=== PATIENT | male | born 1960 | race Caucasian/White ===

== ENCOUNTER 2021-04-20 12:05 | Inpatient (IN) | payer MEDICARE, MEDICAID, SELFPAY ==
[2021-04-20] VITALS (10 sets, daily range): BP systolic 92–143; BP diastolic 65–90; PULSE 92–108; RESP 13–23; TEMP 36.1; O2SAT 96–100; BMI 21.2
--- NOTE | ~2021-04-20 | XR_ITS ---
XR abdomen NG/feed tube insert DATE: 04/20/2021 12:47 INDICATION: NG tube placement TECHNIQUE: Portable AP view on 04/20/2021 1243 hours COMPARISON: None FINDINGS: There is an NG tube in gastric fundus, the proximal side-port 2 cm distal to the diaphragma tic hiatus. Normal heart size. No pulmonary infiltrate or consolidation or pleural effusion, pulmonary vascular c ongestion or pneumothorax is evident. IMPRESSION: NG tube in gastric fundus Reviewed, dictated and finalized at [facility]. Reviewed, dictated and finalized at location [facility]. IMPRESSION: NG tube in gastric fundus
--- NOTE | ~2021-04-20 | CT_ITS ---
EXAMINATION: CT abdomen pelvis wo con DATE: 04/20/2021 13:17 INDICATION: Abdominal pain, coffee-ground emesis. TECHNIQUE: Computed tomography (CT) of the abdomen and pelvis was performed without intravenous contr ast. Automated exposure control and iterative reconstruction technique were employed. Exam dose: 278 .34 mGy-cm total exam DLP. COMPARISON: 09/21/2019 CT abdomen pelvis FINDINGS: Slight focal infiltrate or atelectasis at the base of the right lower lobe. The lung bases are otherwise clear. Normal heart size. No pericardial or pleural effusion. There is an NG tube in the thymic. The gallbladder is present. The liver, bile ducts, spleen, pancreas, pancreatic duct and adrenal glan ds are unremarkable. 6 mm hyperdense posterior right renal cyst. The kidneys are otherwise unremarkable. No urinary tract calculus or hydroureteronephrosis. The urinary bladder is unremarkable. There are numerous fluid containing borderline and mildly dilated small bowel segments involving the ileum. There are scattered small bowel air-fluid levels. Differential diagnosis includes adynamic ile us, enteritis, distal small bowel obstruction. Normal appendix. There is a prominent amount of fecal material in the colon. No intraperitoneal free air. Small fat-containing umbilical hernia. No inguinal hernia. Multilevel degenerative disc disease, most severe at L4-5. Occasional scattered osteosclerotic foci may be bone islands; osteosclerotic metastatic deposits are considered less likely but aren't definitively excluded. IMPRESSION: Mildly dilated fluid distended ileum several differential diagnosis includes enteritis, adynamic ileus versus distal small bowel obstruction NG tube in proximal stomach Reviewed, dictated and finalized at [facility]. Reviewed, dictated and finalized at location [facility]. IMPRESSION: Mildly dilated fluid distended ileum several differential diagnosi s includes enteritis, adynamic ileus versus distal small bowel obstruction NG tube in proximal stomach
--- NOTE | ~2021-04-20 | US_ITS ---
US renal BI 04/21/2021 11:57 Procedure: Realtime transabdominal ultrasound of the kidneys and bladder. Indication: Acute renal insufficiency Comparison: CT dated 04/20/2021 Findings: Renal echotexture is normal bilaterally without hydronephrosis, contour deforming mass or r enal calculus. The hyperdense cyst seen in the right kidney on CT examination not identified on ultra sound, likely due to patient motion. The right kidney measures 11 cm and left kidney measures 10.1 cm . There is a Hart catheter in the bladder. Impression: 1: Unremarkable renal ultrasound. Reviewed, dictated and finalized at location [facility]. Impression: 1: Unremarkable renal ultrasound.
[2021-04-20] MEDS: ONDANSETRON INJ 4 MG/2 ML VIAL (12:19)
[2021-04-20 13:03] LABS: Basophils Absolute Auto 0.1 K/mm3 (0.0-0.1); Basophils Percent Auto 0.2 % (0.2-1.2); Eosinophils Absolute Auto 10.8 K/mm3 (0-0.3); Eosinophils Percent Auto 33.3 % (0-4.4); Hematocrit 46.9 % (42.0-52.0); Hemoglobin 16.2 g/dL (14.0-18.0); Immature Granulocyte Absolute 0.15 K/mm3 (0.00-0.031); Immature Granulocyte Percent A 0.5 % (0-0.5); Lymphocytes Absolute Auto 0.79 K/mm3 (0.9-3.2); Lymphocytes Percent Auto 2.4 % (18.3-44.2); Mean Corpuscular HGB Conc 34.5 g/dl (32-36); Mean Corpuscular Hemoglobin 30.1 pg (26-34); Mean Corpuscular Volume 87.2 fl (80-100); Mean Platelet Volume 9.4 fl (7.4-10.4); Monocytes Absolute Auto 2.9 K/mm3 (0.1-0.6); Monocytes Percent Auto 8.8 % (2.6-8.5); Neutrophils Absolute Auto 17.8 K/mm3 (1.3-6.7); Neutrophils Percent Auto 54.8 % (45.5-73.1); Platelet Count Result 390 k/mm3 (150-375); Red Blood Count 5.38 M/mm3 (4.6-6.20); Red Cell Distribution Width 13.8 % (11.5-14.5); White Blood Count 32.5 K/mm3 (4.5-10.0)
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
[2021-04-20] MEDS: PANTOPRAZOLE SODIUM IV 40 MG VIAL IV PUSH (13:05)
[2021-04-20] MEDS: HYDROmorphone HCL INJ (*CRX) 1 MG/ML SYR 0.5 MG IV PUSH ×2 (13:05→23:46)
[2021-04-20] MEDS: SODIUM CHLORIDE 0.9% IV 1,000 ML 999 ML IV CONT (13:05)
[2021-04-20] MEDS: DICYCLOMINE HCL INJ 20 MG/2 ML VIAL IM (13:05)
[2021-04-20] MEDS: ONDANSETRON INJ 4 MG/2 ML VIAL IV PUSH (13:05)
--- NOTE | 2021-04-20 13:06 | PC.NURSE ---
Pt to CT scan via stretcher at this time.
[2021-04-20 13:11] LABS: Estimated CRCL calculation 13 ml/min; Estimated Glomerular Filt Rate 10
[2021-04-20 13:12] LABS: Prothrombin Time 13.3 Seconds (11.1-14.7)
[2021-04-20 13:13] LABS: Alanine Aminotransferase 37 U/L (4-50); Albumin Level 4.9 g/dL (3.5-5.1); Alkaline Phosphatase 57 U/L (38-126); Anion Gap 20 mmol/L (8-16); Aspartate Amino Transferase 109 U/L (17-59); Bilirubin,Total 0.9 mg/dL (0.2-1.3); Blood Urea Nitrogen 93 mg/dL (9-20); Calcium 9.5 mg/dL (8.4-10.2); Carbon Dioxide 24 mmol/L (22-30); Chloride 92 mmol/L (98-107); Estimated CRCL calculation 14 ml/min; Estimated Glomerular Filt Rate 11; Glucose 132 mg/dL (65-110); Lipase 28 U/L (23-300); Partial Thromboplastin Time 31.3 SECONDS (22.3-36.8); Potassium 4.8 mmol/L (3.4-5.0); Sodium 136 mmol/L (137-145)
[2021-04-20 14:02] LABS: Add Urine Microscopic? YES; Appearance Urine Cloudy (Clear); Bacteria Urine Trace /hpf; Bilirubin Urine Negative (Negative); Blood Urine 3+ (Negative); Color Urine Amber (Yellow); Glucose Urine UA Negative (Negative); Hyaline Casts Urine 50+ /lpf; Ketones Urine Negative (Negative); Leukocyte Esterase Ur Negative LEU/UL (Negative); Mucus Urine Few /lpf; Nitrate Urine Negative (Negative); Protein Urine 2+ mg/dL (Negative); Specific Grav Ur 1.017 (1.001-1.035); Squamous Epithelial Cell Urine Occasional /hpf (Few); Urobilinogen Urine Negative mg/dL (<2.0)
--- NOTE | 2021-04-20 14:09 | PC.NURSE ---
jerica called lab, pari, added on CK
[2021-04-20 14:36] LABS: Creatine Kinase 2705 U/L (55-170)
[2021-04-20 15:18] LABS: Barbiturate Screen Urine Negative (Negative); Benzodiazepines Screen Urine Negative (Negative)
[2021-04-20 15:20] LABS: Cannabinoid Screen Urine Positive (Negative); Cocaine Screen Urine Negative (Negative); Methadone Screen Urine Negative (Negative); Opiate Screen Urine Positive (Negative); Phencyclidine Screen Urine Negative (Negative)
[2021-04-20 15:36] LABS: Amphetamine Screen Urine Positive (Negative)
[2021-04-20] MEDS: SODIUM CHLORIDE 0.9% IV 1,000 ML 200 ML IV CONT ×2 (16:05→20:56)
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
--- NOTE | 2021-04-20 19:47 | ADMGEN ---
This patient, Olvin Billy, was admitted to [facility] Surg Room 312-01. Patient/family oriented to hospital policies and general routines including ID bracelet, bed and alarms, visiting hours, pain management, procedures, bathroom and other care routines, personal items, smoking policy, room service/diet, and visiting hours. Information on how to activate the Rapid Response Team has been discussed. Patient/Family are encouraged to report perceived risks to care and to ask questions if they do not understand what they are told or what they should do.
[2021-04-20 23:21] LABS: Anion Gap 13 mmol/L (8-16); Blood Urea Nitrogen 84 mg/dL (9-20); Calcium 8.7 mg/dL (8.4-10.2); Carbon Dioxide 21 mmol/L (22-30); Chloride 103 mmol/L (98-107); Estimated CRCL calculation 23 ml/min; Estimated Glomerular Filt Rate 22; Glucose 108 mg/dL (65-110); Lactic Acid Reflex 1.1 mmol/L (0.7-2.1); Magnesium 2.1 mg/dL (1.6-2.3); Potassium 4.4 mmol/L (3.4-5.0); Sodium 137 mmol/L (137-145)
[2021-04-20 23:26] LABS: Phosphorus 6.8 mg/dL (2.5-4.5)
[2021-04-20 23:32] LABS: Hematocrit 43.4 % (42.0-52.0); Hemoglobin 15.2 g/dL (14.0-18.0)
[2021-04-20 23:42] LABS: Ethanol < 10 mg/dL (<10)
[2021-04-20] MEDS: LORazepam INJ (*CRX) 2 MG/ML VIAL 1 MG IV PUSH (23:44)
[2021-04-20 23:49] LABS: Creatine Kinase 2205 U/L (55-170)
[2021-04-21] VITALS (8 sets, daily range): BP systolic 107–157; BP diastolic 62–94; PULSE 78–112; RESP 18–27; TEMP 35.8–36.6; O2SAT 95–100
[2021-04-21 00:03] LABS: Troponin I < 0.012 ng/mL (0.000-0.034)
[2021-04-21] MEDS: NICOTINE (*PBKC) 21 MG PATCH 1 PATCH TRANSDERM ×2 (00:13→14:14)
[2021-04-21] MEDS: PANTOPRAZOLE SODIUM IV 40 MG VIAL IV PUSH ×3 (00:15→21:46)
[2021-04-21 00:20] LABS: Erythrocyte Sedimentation Rate 20 mm/hr (0-20)
[2021-04-21 00:28] LABS: HIV 1/2 Ab P24 Ag Result Negative (Negative)
[2021-04-21 00:42] LABS: CRP 31.7 mg/dL (<1.0)
[2021-04-21] MEDS: SODIUM CHLORIDE 0.9% IV 1,000 ML 200 ML IV CONT ×2 (03:53→10:01)
[2021-04-21] MEDS: HYDROmorphone HCL INJ (*CRX) 1 MG/ML SYR 0.5 MG IV PUSH ×3 (04:02→21:55)
[2021-04-21] MEDS: LORazepam INJ (*CRX) 2 MG/ML VIAL 1 MG IV PUSH ×3 (04:03→17:04)
[2021-04-21 04:16] LABS: Total Protein Urine Random 21 mg/dL; Ur Ttl Prot Creatinine Ratio 0.25 mg/mg (0-0.20)
[2021-04-21 04:19] LABS: Potassium Urine Random 46.7 meq/L; Sodium Urine Random 82 meq/L
[2021-04-21 06:39] LABS: Basophils Absolute Auto 0.1 K/mm3 (0.0-0.1); Basophils Percent Auto 0.7 % (0.2-1.2); Eosinophils Absolute Auto 3.3 K/mm3 (0-0.3); Hematocrit 50.6 % (42.0-52.0); Hemoglobin 16.6 g/dL (14.0-18.0); Immature Granulocyte Absolute 0.11 K/mm3 (0.00-0.031); Immature Granulocyte Percent A 0.6 % (0-0.5); Lymphocytes Absolute Auto 0.56 K/mm3 (0.9-3.2); Lymphocytes Percent Auto 2.9 % (18.3-44.2); Mean Corpuscular HGB Conc 32.8 g/dl (32-36); Mean Corpuscular Hemoglobin 30.1 pg (26-34); Mean Corpuscular Volume 91.8 fl (80-100); Mean Platelet Volume 9.7 fl (7.4-10.4); Monocytes Absolute Auto 1.5 K/mm3 (0.1-0.6); Monocytes Percent Auto 7.7 % (2.6-8.5); Neutrophils Absolute Auto 13.9 K/mm3 (1.3-6.7); Neutrophils Percent Auto 71.1 % (45.5-73.1); Platelet Count Result 267 k/mm3 (150-375); Red Blood Count 5.51 M/mm3 (4.6-6.20); Red Cell Distribution Width 14.3 % (11.5-14.5); White Blood Count 19.6 K/mm3 (4.5-10.0)
[2021-04-21 06:54] LABS: Alanine Aminotransferase 40 U/L (4-50); Alkaline Phosphatase 40 U/L (38-126); Anion Gap 14 mmol/L (8-16); Aspartate Amino Transferase 107 U/L (17-59); Bilirubin,Total 0.9 mg/dL (0.2-1.3); Blood Urea Nitrogen 74 mg/dL (9-20); Calcium 9.2 mg/dL (8.4-10.2); Carbon Dioxide 19 mmol/L (22-30); Chloride 105 mmol/L (98-107); Creatine Kinase 1425 U/L (55-170); Estimated CRCL calculation 38 ml/min; Estimated Glomerular Filt Rate 41; Glucose 98 mg/dL (65-110); Magnesium 2.2 mg/dL (1.6-2.3); Potassium 4.9 mmol/L (3.4-5.0); Sodium 138 mmol/L (137-145)
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
[2021-04-21 11:06] LABS: Complement C3 92 mg/dL (88-165)
--- NOTE | 2021-04-21 11:24 | PC.NURSE ---
to US per stretcher
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
[2021-04-21] MEDS: LACTATED RINGERS 1,000 ML 150 ML IV CONT (12:22)
--- NOTE | 2021-04-21 12:33 | WPDANESEPPF ---
Anes - Initial Pre Proc Eval Procedure: Operation Date: 04/21/21 15:30 Proposed Procedures p Esophagogastroduodenoscopy - Sanchez Burden MD Date/Time: 04/21/21 12:33 Surgeon: Jaylyn Valencia PA-C Pre Op Diagnosis: Bowel obstruction/vomiting/acute kidney failure/to Patient Data Age: 60 Gender: M Height: 1.73 m Weight: 63.2 kg Last Vital Signs Temp 36.1 C L 04/21/21 12:20 Pulse 101 H 04/21/21 12:20 Resp 20 04/21/21 12:20 BP 109/68 04/21/21 12:20 Pulse Ox 98 04/21/21 12:20 Allergies Allergy/AdvReac Type Severity Reaction Status Date / Time codeine Allergy Mild Hives Verified 04/21/21 12:09 propoxyphene Allergy Mild Hives Verified 04/21/21 12:09 tramadol Allergy Mild Hives Verified 04/21/21 12:09 Home Medications Medication Instructions Recorded Confirmed Type aspirin [Adult Low Dose Aspirin] 81 mg PO DAILY 09/21/19 04/21/21 History cyclobenzaprine 10 mg PO TID PRN 09/21/19 04/21/21 History lisinopril 5 mg PO DAILY 09/21/19 04/21/21 History tamsulosin 0.4 mg PO DAILY 09/21/19 04/21/21 History polyethylene glycol 3350 [Miralax] 17 g PO QAM #30 ea 09/26/19 04/21/21 Rx oxycodone-acetaminophen 10 mg-325 1 tablet PO Q6H PRN #20 tablet 10/19/19 04/21/21 Rx mg tablet hydrochlorothiazide 25 mg PO DAILY 04/20/21 04/21/21 History hydroxyzine HCl 50 mg PO Q4-5H PRN 04/20/21 04/21/21 History pantoprazole 40 mg PO DAILY 04/20/21 04/21/21 History quetiapine 100 mg PO BID 04/20/21 04/21/21 History Laboratory Tests 04/20/21 04/20/21 04/20/21 12:47 12:53 12:53 WBC 32.5 K/mm3 H K/mm3 (4.5-10.0) RBC 5.38 M/mm3 M/mm3 (4.6-6.20) Hgb 16.2 g/dL g/dL (14.0-18.0) Hct 46.9 % % (42.0-52.0) MCV 87.2 fl fl (80-100) MCH 30.1 pg pg (26-34) MCHC 34.5 g/dl g/dl (32-36) RDW 13.8 % % (11.5-14.5) Plt Count 390 k/mm3 H D k/mm3 (150-375) MPV 9.4 fl fl (7.4-10.4) Immature Gran % (Auto) 0.5 % % (0-0.5) Neut % (Auto) 54.8 % % (45.5-73.1) Lymph % (Auto) 2.4 % L % (18.3-44.2) [place] % (Auto) 8.8 % H % (2.6-8.5) Eos % (Auto) 33.3 % H % (0-4.4) Baso % (Auto) 0.2 % % (0.2-1.2) Lymph # (Auto) 0.79 K/mm3 L K/mm3 (0.9-3.2) [place] # (Auto) 2.9 K/mm3 H K/mm3 (0.1-0.6) Eos # (Auto) 10.8 K/mm3 H K/mm3 (0-0.3) Baso # (Auto) 0.1 K/mm3 K/mm3 (0.0-0.1) Abs Immat Gran (auto) 0.15 K/mm3 H K/mm3 (0.00-0.031) Absolute Neuts (auto) 17.8 K/mm3 H K/mm3 (1.3-6.7) Absolute Nucleated RBC 0.0 K/mm3 K/mm3 (0.0-0.012) Nucleated RBC % 0.0 % % (0.0-0.2) ESR PT 13.3 Seconds Seconds (11.1-14.7) INR 1.0 APTT 31.3 SECONDS SECONDS (22.3-36.8) Sodium Potassium Chloride Carbon Dioxide Anion Gap BUN Creatinine Estim Creat Clear Calc Estimated GFR Glucose Lactic Acid Calcium Phosphorus Magnesium Total Bilirubin Direct Bilirubin AST ALT Alkaline Phosphatase Total Creatine Kinase 2705 U/L H U/L (55-170) Troponin I C-Reactive Protein Total Protein Albumin Lipase Vitamin B12 Urine Color Urine Appearance Urine pH Ur Specific [place] Urine Protein Urine Glucose (UA) Urine Ketones Ur Blood (Man) Urine Nitrate Urine Bilirubin Urine Urobilinogen Leukocyte Esterase Rfl Urine RBC Urine WBC Ur Squamous Epith Cells Urine Bacteria
[2021-04-21 12:51] LABS: Eosinophil Urine None Seen % (None Seen)
--- NOTE | 2021-04-21 14:07 | PC.NURSE ---
patient returned to room from gi lab
[2021-04-21] MEDS: SUCRALFATE SUSP 100 MG/ML 10 ML UDC 1000 MG PO ×2 (16:58→21:46)
--- NOTE | 2021-04-21 17:18 | P.PNIM_ITS ---
Progress Note: A&P Assessment and Plan (1) Ileus: Code(s): K56.7 - Ileus, unspecified Status: Acute Assessment and Plan: CT suggestive of ileus versus possible distal small-bowel obstruction or even enteritis. He has quite a bit of stool in the colon and is a longtime opioid user, making ileus the likely diagnosis. he did have a bowel movement today. * appreciate general surgery and gastroenterology consultation * NG tube has been discontinued * clear liquid diet. Advance as tolerated per Gastroenterology recommendations (2) Coffee ground emesis: Code(s): K92.0 - Hematemesis Status: Acute Assessment and Plan: Patient has a history of GERD and perforated peptic ulcer in August 2019. * underwent EGD performed by Dr. Salvador with evidence of reflux esophagitis * continue Protonix b.i.d. and carafate * H&H remaining stable * advanced diet per GI recommendations. (3) Leukocytosis: Code(s): D72.829 - Elevated white blood cell count, unspecified Status: Acute Assessment and Plan: White blood cell count markedly elevated up to 32.5 at presentation * he has been started on empiric Zosyn for possible infectious enteritis * lactic acid level is 1.1, therefore ischemic etiology seems less likely * remains afebrile. * leukocytosis improved to 19.6 today * Monitor CBC with differential (4) Eosinophilia: Code(s): D72.10 - Eosinophilia, unspecified Status: Acute Assessment and Plan: Peripheral smear performed given marked eosinophilia which demonstrates normal eosinophils. Pathology notes that for unclear reasons, neutrophils in specimen appear to have been counted by the analyzer as eosinophils. On manual review there is no evidence of eosinophilia. (5) Acute kidney injury: Code(s): N17.9 - Acute kidney failure, unspecified Status: Acute Assessment and Plan: Etiology not entirely clear but likely multifactorial in etiology. * He has a history of BPH with urinary retention thus Hart catheter was initiated for strict I/ O. * He has been taking ibuprofen which could cause interstitial nephritis. * CK is elevated thus rhabdomyolysis is likely playing a part. * He is on an YADY-inhibitor which is being held * Dehydration also a factor as well given vomiting. * Renal US unremarkable * He has been gently rehydrated and Cr has improved to 1.7 * Appreciate nephrology consultation (6) Rhabdomyolysis: Code(s): M62.82 - Rhabdomyolysis Status: Acute Assessment and Plan: CK has improved with fluids * CK 1425 today * Continue IV fluids and recheck CK in AM (7) Polysubstance abuse: Code(s): F19.10 - Other psychoactive substance abuse, uncomplicated Status: Acute Assessment and Plan: Urine drug screen is positive for opiates, methamphetamines, and cannabinoids. * He appeared to be under the influence of methamphetamines at initial exam and at this time appears to be withdrawing with restlessness and fidgeting. * He has a history of alcohol abuse but maintains that he has been sober for a year and a half for more. He will be monitored closely for withdrawal symptoms. * He will benefit from formal rehab program. care coordination following resources will be provided. * Ativan p.r.n. acute anxiety or withdrawal symptoms (8) Hypertension: Code(s): I10 - Essential (primary) hypertension Status: Acute Assessment and Plan: Blood pressures w
--- NOTE | 2021-04-21 17:18 | PM.IMPN ---
Progress Note: A&P Assessment and Plan (1) Ileus: Code(s): K56.7 - Ileus, unspecified Status: Acute Assessment and Plan: CT suggestive of ileus versus possible distal small-bowel obstruction or even enteritis. He has quite a bit of stool in the colon and is a longtime opioid user, making ileus the likely diagnosis. he did have a bowel movement today. appreciate general surgery and gastroenterology consultation NG tube has been discontinued clear liquid diet. Advance as tolerated per Gastroenterology recommendations (2) Coffee ground emesis: Code(s): K92.0 - Hematemesis Status: Acute Assessment and Plan: Patient has a history of GERD and perforated peptic ulcer in August 2019. underwent EGD performed by Dr. Salvador with evidence of reflux esophagitis continue Protonix b.i.d. and carafate H&H remaining stable advanced diet per GI recommendations. (3) Leukocytosis: Code(s): D72.829 - Elevated white blood cell count, unspecified Status: Acute Assessment and Plan: White blood cell count markedly elevated up to 32.5 at presentation he has been started on empiric Zosyn for possible infectious enteritis lactic acid level is 1.1, therefore ischemic etiology seems less likely remains afebrile. leukocytosis improved to 19.6 today Monitor CBC with differential (4) Eosinophilia: Code(s): D72.10 - Eosinophilia, unspecified Status: Acute Assessment and Plan: Peripheral smear performed given marked eosinophilia which demonstrates normal eosinophils. Pathology notes that for unclear reasons, neutrophils in specimen appear to have been counted by the analyzer as eosinophils. On manual review there is no evidence of eosinophilia. (5) Acute kidney injury: Code(s): N17.9 - Acute kidney failure, unspecified Status: Acute Assessment and Plan: Etiology not entirely clear but likely multifactorial in etiology. He has a history of BPH with urinary retention thus Hart catheter was initiated for strict I/ O. He has been taking ibuprofen which could cause interstitial nephritis. CK is elevated thus rhabdomyolysis is likely playing a part. He is on an YADY-inhibitor which is being held Dehydration also a factor as well given vomiting. Renal US unremarkable He has been gently rehydrated and Cr has improved to 1.7 Appreciate nephrology consultation (6) Rhabdomyolysis: Code(s): M62.82 - Rhabdomyolysis Status: Acute Assessment and Plan: CK has improved with fluids CK 1425 today Continue IV fluids and recheck CK in AM (7) Polysubstance abuse: Code(s): F19.10 - Other psychoactive substance abuse, uncomplicated Status: Acute Assessment and Plan: Urine drug screen is positive for opiates, methamphetamines, and cannabinoids. He appeared to be under the influence of methamphetamines at initial exam and at this time appears to be withdrawing with restlessness and fidgeting. He has a history of alcohol abuse but maintains that he has been sober for a year and a half for more. He will be monitored closely for withdrawal symptoms. He will benefit from formal rehab program. care coordination following resources will be provided. Ativan p.r.n. acute anxiety or withdrawal symptoms (8) Hypertension: Code(s): I10 - Essential (primary) hypertension Status: Acute Assessment and Plan: Blood pressures were reviewed and they are well controlled. last BP 110/94 lisinopril on hold given BEVERLEY monitor BP trends (9) Tobacco abuse disorder: Code(s): Z72.0 - Tobacco use Status: Acute Assessment and Plan: At this time not felt to be appropriate to discuss smoking cessation as he needs to focus on his other drug habits as mentioned above. Nicotine patch has been ordered for the patient. (10) Benign prostatic
[2021-04-21] MEDS: SODIUM CHLORIDE 0.9% IV 1,000 ML 100 ML IV CONT (23:21)
[2021-04-22] VITALS: BP 139/119; PULSE 98; RESP 22; TEMP 36.7; O2SAT 98
[2021-04-22] MEDS: LORazepam INJ (*CRX) 2 MG/ML VIAL 1 MG IV PUSH (02:00)
[2021-04-22] MEDS: HYDROmorphone HCL INJ (*CRX) 1 MG/ML SYR 0.5 MG IV PUSH ×6 (02:01→21:22)
[2021-04-22 04:00] VITALS: BP 90/42; PULSE 96; RESP 18; TEMP 36.3; O2SAT 100
[2021-04-22 06:38] LABS: Hematocrit 39.6 % (42.0-52.0); Hemoglobin 13.2 g/dL (14.0-18.0); Mean Corpuscular HGB Conc 33.3 g/dl (32-36); Mean Corpuscular Hemoglobin 29.9 pg (26-34); Mean Corpuscular Volume 89.6 fl (80-100); Mean Platelet Volume 9.3 fl (7.4-10.4); Platelet Count Result 204 k/mm3 (150-375); Red Blood Count 4.42 M/mm3 (4.6-6.20); Red Cell Distribution Width 13.9 % (11.5-14.5); White Blood Count 13.4 K/mm3 (4.5-10.0)
[2021-04-22 08:00] VITALS: BP 106/66; PULSE 99; RESP 18; TEMP 36.2; O2SAT 99
[2021-04-22 08:23] LABS: Alanine Aminotransferase 36 U/L (4-50); Albumin Level 3.2 g/dL (3.5-5.1); Alkaline Phosphatase 39 U/L (38-126); Anion Gap 8 mmol/L (8-16); Aspartate Amino Transferase 59 U/L (17-59); Bilirubin,Total 0.7 mg/dL (0.2-1.3); Blood Urea Nitrogen 28 mg/dL (9-20); Calcium 8.9 mg/dL (8.4-10.2); Carbon Dioxide 24 mmol/L (22-30); Chloride 101 mmol/L (98-107); Creatine Kinase 385 U/L (55-170); Estimated CRCL calculation 77 ml/min; Estimated Glomerular Filt Rate > 60; Glucose 86 mg/dL (65-110); Potassium 3.5 mmol/L (3.4-5.0); Sodium 133 mmol/L (137-145)
--- NOTE | 2021-04-22 08:33 | PC.NURSE ---
Patient rolled back and forth in bed through the night. He c/o 10/10 pain when asked. He yelled and made growling noises through the night. He was cooperative with cares but required frequent redirection. He had to be reminded repeatedly not to pull on his Hart catheter which appeared to irritate him more as he continued to pull at it.
[2021-04-22] MEDS: NICOTINE (*PBKC) 21 MG PATCH 1 PATCH TRANSDERM (10:03)
[2021-04-22] MEDS: PANTOPRAZOLE SODIUM IV 40 MG VIAL IV PUSH ×2 (10:03→21:22)
[2021-04-22 12:00] VITALS: BP 111/64; PULSE 95; RESP 18; TEMP 36.4; O2SAT 100
[2021-04-22] MEDS: SUCRALFATE SUSP 100 MG/ML 10 ML UDC 1000 MG PO ×3 (12:29→21:23)
[2021-04-22] MEDS: SODIUM CHLORIDE 0.9% IV 1,000 ML 100 ML IV CONT ×2 (12:30→23:25)
--- NOTE | 2021-04-22 15:45 | P.PNIM_ITS ---
Progress Note: A&P Assessment and Plan (1) Ileus: Code(s): K56.7 - Ileus, unspecified Status: Acute Assessment and Plan: CT suggestive of ileus versus possible distal small-bowel obstruction or even enteritis. He has quite a bit of stool in the colon and is a longtime opioid user, making ileus the likely diagnosis. * Appreciate general surgery and gastroenterology consultation * NG tube discontinued 04/21. Clear liquids today, no BM yet today. Appreciate GI recommendations on advancing diet when able. (2) Coffee ground emesis: Code(s): K92.0 - Hematemesis Status: Acute Assessment and Plan: Patient has a history of GERD and perforated peptic ulcer in August 2019. * underwent EGD performed by Dr. Salvador 04/21 with evidence of reflux esophag itis * continue Protonix b.i.d. and carafate * H&H remaining stable * advance diet per GI recommendations. (3) Leukocytosis: Code(s): D72.829 - Elevated white blood cell count, unspecified Status: Acute Assessment and Plan: White blood cell count markedly elevated up to 32.5 at presentation now much improved to 13.4 * he has been started on empiric Zosyn for possible infectious enteritis. Continue Zosyn (day 2) * lactic acid level was 1.1, therefore ischemic etiology seems less likely * remains afebrile. * Monitor CBC with differential (4) Eosinophilia: Code(s): D72.10 - Eosinophilia, unspecified Status: Ruled-out Assessment and Plan: Peripheral smear performed given marked eosinophilia which demonstrates normal eosinophils. Pathology noted that for unclear reasons, neutrophils in specimen appear to have been counted by the analyzer as eosinophils. On manual review there is no evidence of eosinophilia. (5) Acute kidney injury: Code(s): N17.9 - Acute kidney failure, unspecified Status: Acute Assessment and Plan: Etiology not entirely clear but likely multifactorial in etiology. * He has a history of BPH with urinary retention thus Hart catheter was initiated for strict I/ O. * He has been taking ibuprofen which could cause interstitial nephritis. * CK is elevated thus rhabdomyolysis is likely playing a part. * He is on an YADY-inhibitor which is being held * Dehydration also a factor as well given vomiting. * Renal US unremarkable * He has been gently rehydrated and Cr has improved to 0.8. Nephrology consult cancelled as his renal function is improving nicely with hydration. Consultation can be reconsidered if renal function worsens. (6) Rhabdomyolysis: Code(s): M62.82 - Rhabdomyolysis Status: Acute Assessment and Plan: CK has improved with fluids * CK 385 today * Continue IV fluids and recheck CK in AM (7) Polysubstance abuse: Code(s): F19.10 - Other psychoactive substance abuse, uncomplicated Status: Acute Assessment and Plan: Urine drug screen is positive for opiates, methamphetamines, and cannabinoids. * He appeared to be under the influence of methamphetamines at initial exam and at this time appeared to be withdrawing with restlessness and fidgeting although this seems improved today. * He has a history of alcohol abuse but maintains that he has been sober for a year and a half for more. He will be monitored closely for withdrawal symptoms. * He will benefit from formal rehab program. Care coordination following, resources will be provided. * Ativan p.r.n. acute anxiety or withdrawal symptoms
--- NOTE | 2021-04-22 15:45 | PM.IMPN ---
Progress Note: A&P Assessment and Plan (1) Ileus: Code(s): K56.7 - Ileus, unspecified Status: Acute Assessment and Plan: CT suggestive of ileus versus possible distal small-bowel obstruction or even enteritis. He has quite a bit of stool in the colon and is a longtime opioid user, making ileus the likely diagnosis. Appreciate general surgery and gastroenterology consultation NG tube discontinued 04/21. Clear liquids today, no BM yet today. Appreciate GI recommendations on advancing diet when able. (2) Coffee ground emesis: Code(s): K92.0 - Hematemesis Status: Acute Assessment and Plan: Patient has a history of GERD and perforated peptic ulcer in August 2019. underwent EGD performed by Dr. Salvador 04/21 with evidence of reflux esophagitis continue Protonix b.i.d. and carafate H&H remaining stable advance diet per GI recommendations. (3) Leukocytosis: Code(s): D72.829 - Elevated white blood cell count, unspecified Status: Acute Assessment and Plan: White blood cell count markedly elevated up to 32.5 at presentation now much improved to 13.4 he has been started on empiric Zosyn for possible infectious enteritis. Continue Zosyn (day 2) lactic acid level was 1.1, therefore ischemic etiology seems less likely remains afebrile. Monitor CBC with differential (4) Eosinophilia: Code(s): D72.10 - Eosinophilia, unspecified Status: Ruled-out Assessment and Plan: Peripheral smear performed given marked eosinophilia which demonstrates normal eosinophils. Pathology noted that for unclear reasons, neutrophils in specimen appear to have been counted by the analyzer as eosinophils. On manual review there is no evidence of eosinophilia. (5) Acute kidney injury: Code(s): N17.9 - Acute kidney failure, unspecified Status: Acute Assessment and Plan: Etiology not entirely clear but likely multifactorial in etiology. He has a history of BPH with urinary retention thus Hart catheter was initiated for strict I/ O. He has been taking ibuprofen which could cause interstitial nephritis. CK is elevated thus rhabdomyolysis is likely playing a part. He is on an YADY-inhibitor which is being held Dehydration also a factor as well given vomiting. Renal US unremarkable He has been gently rehydrated and Cr has improved to 0.8. Nephrology consult cancelled as his renal function is improving nicely with hydration. Consultation can be reconsidered if renal function worsens. (6) Rhabdomyolysis: Code(s): M62.82 - Rhabdomyolysis Status: Acute Assessment and Plan: CK has improved with fluids CK 385 today Continue IV fluids and recheck CK in AM (7) Polysubstance abuse: Code(s): F19.10 - Other psychoactive substance abuse, uncomplicated Status: Acute Assessment and Plan: Urine drug screen is positive for opiates, methamphetamines, and cannabinoids. He appeared to be under the influence of methamphetamines at initial exam and at this time appeared to be withdrawing with restlessness and fidgeting although this seems improved today. He has a history of alcohol abuse but maintains that he has been sober for a year and a half for more. He will be monitored closely for withdrawal symptoms. He will benefit from formal rehab program. Care coordination following, resources will be provided. Ativan p.r.n. acute anxiety or withdrawal symptoms (8) Hypertension: Code(s): I10 - Essential (primary) hypertension Status: Acute Assessment and Plan: Blood pressures were reviewed and they are well controlled. last BP 111/64 Lisinopril on hold given BEVERLEY. Monitor BP and adjust treatment as needed. (9) Tobacco abuse disorder: Code(s): Z72.0 - Tobacco use Status: Acute Assessment and Plan: At this time not felt to be appropriate to discuss smo
[2021-04-22 16:00] VITALS: BP 103/80; PULSE 97; RESP 20; TEMP 36.4; O2SAT 99
[2021-04-22 20:00] VITALS: BP 113/74; PULSE 98; RESP 18; TEMP 36; O2SAT 99
[2021-04-23] VITALS: BP 112/80; PULSE 76; RESP 18; TEMP 36; O2SAT 94
[2021-04-23] MEDS: HYDROmorphone HCL INJ (*CRX) 1 MG/ML SYR 0.5 MG IV PUSH ×3 (01:09→11:39)
[2021-04-23 04:00] VITALS: BP 101/74; PULSE 70; RESP 20; TEMP 35.8; O2SAT 99
[2021-04-23] MEDS: SUCRALFATE SUSP 100 MG/ML 10 ML UDC 1000 MG PO ×4 (05:53→21:01)
[2021-04-23 06:23] LABS: Hematocrit 37.7 % (42.0-52.0); Hemoglobin 12.8 g/dL (14.0-18.0); Mean Corpuscular Hemoglobin 30.1 pg (26-34); Mean Corpuscular Volume 88.7 fl (80-100); Mean Platelet Volume 9.3 fl (7.4-10.4); Platelet Count Result 229 k/mm3 (150-375); Red Blood Count 4.25 M/mm3 (4.6-6.20); Red Cell Distribution Width 13.7 % (11.5-14.5); White Blood Count 12.5 K/mm3 (4.5-10.0)
[2021-04-23 06:39] LABS: Alanine Aminotransferase 29 U/L (4-50); Albumin Level 2.7 g/dL (3.5-5.1); Alkaline Phosphatase 42 U/L (38-126); Anion Gap 7 mmol/L (8-16); Aspartate Amino Transferase 32 U/L (17-59); Bilirubin,Total 0.6 mg/dL (0.2-1.3); Blood Urea Nitrogen 14 mg/dL (9-20); Calcium 8.9 mg/dL (8.4-10.2); Carbon Dioxide 26 mmol/L (22-30); Chloride 101 mmol/L (98-107); Creatine Kinase 79 U/L (55-170); Estimated CRCL calculation 101 ml/min; Estimated Glomerular Filt Rate > 60; Glucose 102 mg/dL (65-110); Magnesium 1.7 mg/dL (1.6-2.3); Potassium 3.3 mmol/L (3.4-5.0); Sodium 134 mmol/L (137-145)
[2021-04-23] MEDS: NICOTINE (*PBKC) 21 MG PATCH 1 PATCH TRANSDERM (08:02)
[2021-04-23] MEDS: PANTOPRAZOLE SODIUM IV 40 MG VIAL IV PUSH ×2 (08:02→21:01)
[2021-04-23] MEDS: SODIUM CHLORIDE 0.9% IV 1,000 ML 100 ML IV CONT (11:05)
[2021-04-23] MEDS: LORazepam INJ (*CRX) 2 MG/ML VIAL 1 MG IV PUSH ×2 (13:14→21:02)
[2021-04-23 14:00] VITALS: BP 120/86; PULSE 95; RESP 16; TEMP 36.6; O2SAT 98
[2021-04-23] MEDS: POTASSIUM CHLORIDE 20 MEQ TABLET PO (16:39)
[2021-04-23] MEDS: MAGNESIUM SULF 2 GM/WATER 50ML 2 GM/50 ML BAG IVPB (16:39)
--- NOTE | 2021-04-23 17:03 | P.PNIM_ITS ---
Progress Note: A&P Assessment and Plan (1) Ileus: Code(s): K56.7 - Ileus, unspecified Status: Acute Assessment and Plan: CT suggestive of ileus versus possible distal small-bowel obstruction or even enteritis. CT also with prominent amount of stool in the colon and is a longtime opioid user, making ileus the likely diagnosis. * Appreciate general surgery and gastroenterology consultation * NG tube discontinued 04/21. he had a bowel movement on 04/21 * tolerating full liquids. advance to low-fiber. (2) Coffee ground emesis: Code(s): K92.0 - Hematemesis Status: Acute Assessment and Plan: Patient has a history of GERD and perforated peptic ulcer in August 2019. * underwent EGD performed by Dr. Salvador 04/21 with evidence of reflux esophagitis * continue Protonix b.i.d. and carafate * H&H remaining stable (3) Leukocytosis: Code(s): D72.829 - Elevated white blood cell count, unspecified Status: Acute Assessment and Plan: White blood cell count markedly elevated up to 32.5 at presentation now much improved to 12.5 * he has been started on empiric Zosyn for possible infectious enteritis. Continue Zosyn (day 3) * lactic acid level was 1.1, therefore ischemic etiology seems less likely * remains afebrile. * Monitor CBC with differential (4) Eosinophilia: Code(s): D72.10 - Eosinophilia, unspecified Status: Ruled-out Assessment and Plan: Peripheral smear performed given marked eosinophilia which demonstrates normal eosinophils. Pathology noted that for unclear reasons, neutrophils in specimen appear to have been counted by the analyzer as eosinophils. On manual review there is no evidence of eosinophilia. (5) Acute kidney injury: Code(s): N17.9 - Acute kidney failure, unspecified Status: Acute Assessment and Plan: Etiology not entirely clear but likely multifactorial in etiology. * He has a history of BPH with urinary retention thus Hart catheter was initiated for strict I/ O. * He has been taking ibuprofen which could cause interstitial nephritis. * CK is elevated thus rhabdomyolysis is likely playing a part. * He is on an YADY-inhibitor which is being held * Dehydration also a factor as well given vomiting. * Renal US unremarkable * He has been gently rehydrated and Cr has improved to 0.6. Nephrology consult cancelled as his renal function is improving nicely with hydration. Consultation can be reconsidered if renal function worsens. (6) Rhabdomyolysis: Code(s): M62.82 - Rhabdomyolysis Status: Acute Assessment and Plan: Resolved. CK has normalized with fluid rehydration * CK 79 today * Discontinue IV fluids. He is tolerating p.o. intake and has been adequately rehydrated. (7) Polysubstance abuse: Code(s): F19.10 - Other psychoactive substance abuse, uncomplicated Status: Acute Assessment and Plan: Urine drug screen is positive for opiates, methamphetamines, and cannabinoids. * He appeared to be under the influence of methamphetamines at initial exam with subsequent withdrawal symptoms including restlessness and fidgeting which has improved * He has a history of alcohol abuse but maintains that he has been sober for a year and a half for more. He will be monitored closely for withdrawal symptoms. * He will benefit from formal rehab program. Care coordination following, resources will be provided. * Ativan p.r.n. acute anxiety or withdrawal symptoms
--- NOTE | 2021-04-23 17:03 | PM.IMPN ---
Progress Note: A&P Assessment and Plan (1) Ileus: Code(s): K56.7 - Ileus, unspecified Status: Acute Assessment and Plan: CT suggestive of ileus versus possible distal small-bowel obstruction or even enteritis. CT also with prominent amount of stool in the colon and is a longtime opioid user, making ileus the likely diagnosis. Appreciate general surgery and gastroenterology consultation NG tube discontinued 04/21. he had a bowel movement on 04/21 tolerating full liquids. advance to low-fiber. (2) Coffee ground emesis: Code(s): K92.0 - Hematemesis Status: Acute Assessment and Plan: Patient has a history of GERD and perforated peptic ulcer in August 2019. underwent EGD performed by Dr. Salvador 04/21 with evidence of reflux esophagitis continue Protonix b.i.d. and carafate H&H remaining stable (3) Leukocytosis: Code(s): D72.829 - Elevated white blood cell count, unspecified Status: Acute Assessment and Plan: White blood cell count markedly elevated up to 32.5 at presentation now much improved to 12.5 he has been started on empiric Zosyn for possible infectious enteritis. Continue Zosyn (day 3) lactic acid level was 1.1, therefore ischemic etiology seems less likely remains afebrile. Monitor CBC with differential (4) Eosinophilia: Code(s): D72.10 - Eosinophilia, unspecified Status: Ruled-out Assessment and Plan: Peripheral smear performed given marked eosinophilia which demonstrates normal eosinophils. Pathology noted that for unclear reasons, neutrophils in specimen appear to have been counted by the analyzer as eosinophils. On manual review there is no evidence of eosinophilia. (5) Acute kidney injury: Code(s): N17.9 - Acute kidney failure, unspecified Status: Acute Assessment and Plan: Etiology not entirely clear but likely multifactorial in etiology. He has a history of BPH with urinary retention thus Hart catheter was initiated for strict I/ O. He has been taking ibuprofen which could cause interstitial nephritis. CK is elevated thus rhabdomyolysis is likely playing a part. He is on an YADY-inhibitor which is being held Dehydration also a factor as well given vomiting. Renal US unremarkable He has been gently rehydrated and Cr has improved to 0.6. Nephrology consult cancelled as his renal function is improving nicely with hydration. Consultation can be reconsidered if renal function worsens. (6) Rhabdomyolysis: Code(s): M62.82 - Rhabdomyolysis Status: Acute Assessment and Plan: Resolved. CK has normalized with fluid rehydration CK 79 today Discontinue IV fluids. He is tolerating p.o. intake and has been adequately rehydrated. (7) Polysubstance abuse: Code(s): F19.10 - Other psychoactive substance abuse, uncomplicated Status: Acute Assessment and Plan: Urine drug screen is positive for opiates, methamphetamines, and cannabinoids. He appeared to be under the influence of methamphetamines at initial exam with subsequent withdrawal symptoms including restlessness and fidgeting which has improved He has a history of alcohol abuse but maintains that he has been sober for a year and a half for more. He will be monitored closely for withdrawal symptoms. He will benefit from formal rehab program. Care coordination following, resources will be provided. Ativan p.r.n. acute anxiety or withdrawal symptoms (8) Hypertension: Code(s): I10 - Essential (primary) hypertension Status: Acute Assessment and Plan: Blood pressures were reviewed and they are well controlled. last BP 101/74 Lisinopril on hold given BEVERLEY. Monitor BP and adjust treatment as needed. (9) Tobacco abuse disorder: Code(s): Z72.0 - Tobacco use Status: Acute Assessment and Plan: At this time not felt to be appropriate to
[2021-04-23] MEDS: ACETAMINOPHEN 325 MG TABLET 650 MG PO (21:01)
[2021-04-23 22:00] VITALS: BP 123/76; PULSE 100; RESP 18; TEMP 36.4; O2SAT 97
[2021-04-24] MEDS: LORazepam INJ (*CRX) 2 MG/ML VIAL 1 MG IV PUSH (03:36)
[2021-04-24] MEDS: ACETAMINOPHEN 325 MG TABLET 650 MG PO ×2 (03:36→08:44)
[2021-04-24 06:00] VITALS: BP 116/82; PULSE 92; RESP 18; TEMP 36.2; O2SAT 98
[2021-04-24] MEDS: SUCRALFATE SUSP 100 MG/ML 10 ML UDC 1000 MG PO ×2 (06:21→12:36)
[2021-04-24 06:32] LABS: Hematocrit 38.1 % (42.0-52.0); Hemoglobin 13.1 g/dL (14.0-18.0); Mean Corpuscular HGB Conc 34.4 g/dl (32-36); Mean Corpuscular Hemoglobin 30.5 pg (26-34); Mean Corpuscular Volume 88.6 fl (80-100); Mean Platelet Volume 9.2 fl (7.4-10.4); Platelet Count Result 227 k/mm3 (150-375); Red Cell Distribution Width 13.8 % (11.5-14.5); White Blood Count 10.8 K/mm3 (4.5-10.0)
[2021-04-24 06:50] LABS: Anion Gap 6 mmol/L (8-16); Blood Urea Nitrogen 10 mg/dL (9-20); Calcium 8.4 mg/dL (8.4-10.2); Carbon Dioxide 25 mmol/L (22-30); Chloride 102 mmol/L (98-107); Estimated CRCL calculation 119 ml/min; Estimated Glomerular Filt Rate > 60; Glucose 126 mg/dL (65-110); Magnesium 1.8 mg/dL (1.6-2.3); Potassium 3.1 mmol/L (3.4-5.0); Sodium 133 mmol/L (137-145)
[2021-04-24] MEDS: POTASSIUM CHLORIDE 20 MEQ TABLET 40 MEQ PO (08:44)
[2021-04-24] MEDS: NICOTINE (*PBKC) 21 MG PATCH 1 PATCH TRANSDERM (08:47)
[2021-04-24] MEDS: PANTOPRAZOLE SODIUM IV 40 MG VIAL IV PUSH (08:47)
[2021-04-24] MEDS: MAGNESIUM OXIDE 400 MG TABLET PO (10:00)
[2021-04-24 10:49] LABS: Anti Streptolysin O Screen 58 IU/mL (<200)
--- NOTE | 2021-04-24 13:52 | PM.DS ---
DS: Admitting Diagnosis Admitting Diagnosis abdominal pain, ileus DS: Discharge Diagnosis Discharge Diagnosis (1) Ileus: Code(s): K56.7 - Ileus, unspecified Status: Acute Assessment and Plan: Date of Admission 04/20/21 Date of Discharge 04/24/21 Mr. Billy is a 60yo M with history of GERD and perforated Peptic ulcer in August [address] Vieira who presented to the ED for evaluation of abdominal pain and coffee-ground emesis. He described his GERD symptoms had been worse over the last week or so and the day prior to arrival he developed sudden onset sharp shooting abdominal pain. Imaging on arrival with CT demonstrated ileus vs. possible distal small-bowel obstruction vs. enteritis with a large volume of stool in the colon. NG was inserted to suction in the ED and general surgery was consulted. He was evaluated by GI and General surgery and on further review, imaging finding seemed more consistent with an ileus than a bowel obstruction and he began having bowel movements. He underwent EGD performed by Dr. Salvador 04/21 with evidence of reflux esophagitis. Abdominal pain improved and NG tube was removed. He was started on empiric antibiotic therapy with IV Zosyn for possible enteritis. He was having bowel movements and overall improving, tolerating meals. He is hemodynamically stable for discharge 04/24/21 with instructions to follow-up with PCP. CT suggestive of ileus versus possible distal small-bowel obstruction or even enteritis. CT also with prominent amount of stool in the colon and is a longtime opioid user, making ileus the likely diagnosis. Evaluated by GI and General surgery NG tube discontinued 04/21. he has had multiple bowel movements and is tolerating a low-fiber diet. He was educated on opioids causing constipation. (2) Coffee ground emesis: Code(s): K92.0 - Hematemesis Status: Acute Assessment and Plan: Patient has a history of GERD and perforated peptic ulcer in August 2019. underwent EGD performed by Dr. Salvador 04/21 with evidence of reflux esophagitis continue Protonix b.i.d. and carafate (3) Leukocytosis: Code(s): D72.829 - Elevated white blood cell count, unspecified Status: Acute Assessment and Plan: White blood cell count markedly elevated up to 32.5 at presentation now much improved to 10.8 he was treated with 4 days of IV Zosyn empirically for possible enteritis. lactic acid level was 1.1, therefore ischemic etiology seems less likely. Remains afebrile. (4) Eosinophilia: Code(s): D72.10 - Eosinophilia, unspecified Status: Ruled-out Assessment and Plan: Peripheral smear performed given marked eosinophilia which demonstrates normal eosinophils. Pathology noted that for unclear reasons, neutrophils in specimen appear to have been counted by the analyzer as eosinophils. On manual review there is no evidence of eosinophilia. (5) Acute kidney injury: Code(s): N17.9 - Acute kidney failure, unspecified Status: Acute Assessment and Plan: Resolved. Etiology not entirely clear but likely multifactorial in etiology. He has a history of BPH with urinary retention thus Hart catheter was initiated for strict I/ O. He has been taking ibuprofen which could cause interstitial nephritis. CK is elevated thus rhabdomyolysis is likely playing a part. He is on an YADY-inhibitor which is being held Dehydration also a factor as well given vomiting. Renal US unremarkable He has been gently rehydrated and Cr has improved to 0.5. Nephrology consult cancelled as his renal function is improving nicely with hydration. Consultation can be reconsidered if renal function worsens.
[2021-04-24 14:00] VITALS: BP 128/84; PULSE 96; RESP 16; TEMP 36.5; O2SAT 100
[2021-04-24 15:02] LABS: Complement Total CH50 58 U/mL (31-60)
[2021-04-24] MEDS: oxyCODONE/ACETAMINOPHEN (*CRX) 5-325 MG TABLET 1 TABLET PO (15:45)
[2021-04-25 11:20] LABS: ANCA Screen Negative (Negative)
[2021-04-25 20:27] LABS: Anti Glomerular Basement Memb <1.0 AI (<1.0)
[2021-04-27 01:38] LABS: Immunoglobulin E 18 kU/L (<=114)
== END 2021-04-24 15:56 | disposition home or self-care (01) | DRG 389 ==
LOC: ANHED 14:15 → ANH3MEDSUR 04-21 04:38
PROVIDERS: Internal Medicine Gastroenterology; Physician Assistant; Admitting Provider Internal Medicine; Emergency Provider Emergency Medicine; Visit Provider Physician Assistant
PROC: 0DJ08ZZ Inspection of Upper Intestinal Tract, Via Natural or Artificial Opening Endoscopic (ICD-10-PCS; CPT 43235; principal; 2021-04-21 15:30)
DX: K56.7 Ileus, unspecified (principal); N17.9 Acute kidney failure, unspecified; A09 Infectious gastroenteritis and colitis, unspecified; K92.0 Hematemesis; M62.82 Rhabdomyolysis; K21.00 Gastro-esophageal reflux disease with esophagitis, without bleeding; K44.9 Diaphragmatic hernia without obstruction or gangrene; K56.609 Unspecified intestinal obstruction, unspecified as to partial versus complete obstruction; F17.210 Nicotine dependence, cigarettes, uncomplicated; N40.1 Benign prostatic hyperplasia with lower urinary tract symptoms; N21.9 Calculus of lower urinary tract, unspecified; F31.9 Bipolar disorder, unspecified; F41.9 Anxiety disorder, unspecified; R33.8 Other retention of urine; E86.0 Dehydration; D72.829 Elevated white blood cell count, unspecified; F15.10 Other stimulant abuse, uncomplicated; F12.10 Cannabis abuse, uncomplicated; F11.10 Opioid abuse, uncomplicated; Z87.11 Personal history of peptic ulcer disease; Z79.82 Long term (current) use of aspirin
CPT/HCPCS: 36415; 51701; 74176; 76775; 80048; 80053; 80076; 80307; 81001; 82550; 82570; 82607; 82785; 83520; 83605; 83690; 83735; 84100; 84133; 84156; 84300; 84484; 85014; 85018; 85025; 85027; 85610; 85652; 85730; 85999; 86021; 86038; 86060; 86140; 86160; 86162; 86703; 88305; 88342; 96361; 96372; 96374; 96375; 96376; 99285; A9270; C9113; G0432; J0131; J0500; J1170; J2060; J2405; J2543; J2704; J3475; J7030; J7120

== ENCOUNTER 2021-05-06 22:03 | Emergency (ER) | payer MEDICARE, MEDICAID, SELFPAY ==
--- NOTE | ~2021-05-06 | CT_ITS ---
EXAMINATION: CT abdomen pelvis w con DATE: 05/07/2021 04:15 INDICATION: Right lower quadrant abdominal pain for 3 days TECHNIQUE: Computed tomography (CT) of the abdomen and pelvis was performed with 100 cc Omnipaque 350 intravenous contrast. Automated exposure control and iterative reconstruction technique were employe d. Exam dose: 295.40 mGy-cm total exam DLP. COMPARISON: 04/20/2021 CT abdomen pelvis FINDINGS: Normal heart size. No pericardial or pleural effusion. The lung bases are clear of infiltra te or consolidation. The liver, gallbladder, bile ducts, spleen, pancreas and pancreatic duct normal. Normal morphology of the adrenal glands. No suspicious renal mass lesion is noted. No urinary tract calculus or hydroureteronephrosis. The uri nary bladder is unremarkable. There is atherosclerotic calcification but normal caliber of the abdominal aorta. No intraperitoneal or retroperitoneal or pelvic mass lesion or adenopathy or ascites. There is thickening of the wall of the distal small bowel with fecal lysed content and occasional sma ll bowel air-fluid levels. Findings are consistent with nonspecific enteritis; consider infectious or inflammatory enteritis. No bowel obstruction or intraperitoneal free air. Small fat-containing umbilical hernia. Degenerative changes of the thoracic and lumbar spine including particularly severe degenerative disc disease at L4-5 and L2-3. Normal appendix. IMPRESSION: Thickening of the wall of the distal small bowel and fecal lysed small bowel content, oc casional small bowel air-fluid levels, consistent with nonspecific enteritis; consider infectious or inflammatory etiology. Normal appendix Reviewed, dictated and finalized at [facility]. Reviewed, dictated and finalized at [facility]. IMPRESSION: Thickening of the wall of the distal small bowel and fecal lysed s mall bowel content, occasional small bowel air-fluid levels, consistent with no nspecific enteritis; consider infectious or inflammatory etiology. Normal appendix
[2021-05-06 22:06] VITALS: BP 110/82; PULSE 117; RESP 18; TEMP 35.9; O2SAT 100
[2021-05-06 22:20] LABS: Basophils Absolute Auto 0.1 K/mm3 (0.0-0.1); Basophils Percent Auto 0.8 % (0.2-1.2); Eosinophils Absolute Auto 0.1 K/mm3 (0-0.3); Eosinophils Percent Auto 0.8 % (0-4.4); Hematocrit 41.9 % (42.0-52.0); Hemoglobin 13.8 g/dL (14.0-18.0); Immature Granulocyte Absolute 0.12 K/mm3 (0.00-0.031); Immature Granulocyte Percent A 1.2 % (0-0.5); Lymphocytes Absolute Auto 1.11 K/mm3 (0.9-3.2); Lymphocytes Percent Auto 11.1 % (18.3-44.2); Mean Corpuscular HGB Conc 32.9 g/dl (32-36); Mean Corpuscular Hemoglobin 29.7 pg (26-34); Mean Corpuscular Volume 90.1 fl (80-100); Monocytes Absolute Auto 0.9 K/mm3 (0.1-0.6); Monocytes Percent Auto 8.5 % (2.6-8.5); Neutrophils Absolute Auto 7.7 K/mm3 (1.3-6.7); Neutrophils Percent Auto 77.6 % (45.5-73.1); Platelet Count Result 346 k/mm3 (150-375); Red Blood Count 4.65 M/mm3 (4.6-6.20); Red Cell Distribution Width 13.2 % (11.5-14.5)
[2021-05-06 22:37] LABS: Alanine Aminotransferase 17 U/L (4-50); Albumin Level 2.8 g/dL (3.5-5.1); Alkaline Phosphatase 36 U/L (38-126); Anion Gap 5 mmol/L (8-16); Aspartate Amino Transferase 17 U/L (17-59); Bilirubin,Total 0.3 mg/dL (0.2-1.3); Blood Urea Nitrogen 13 mg/dL (9-20); Calcium 8.5 mg/dL (8.4-10.2); Carbon Dioxide 23 mmol/L (22-30); Chloride 102 mmol/L (98-107); Estimated CRCL calculation 95 ml/min; Estimated Glomerular Filt Rate > 60; Glucose 119 mg/dL (65-110); Lipase 15 U/L (23-300); Potassium 3.6 mmol/L (3.4-5.0); Sodium 130 mmol/L (137-145)
[2021-05-07 01:01] VITALS: BP 116/74; PULSE 105; RESP 17; O2SAT 99
--- NOTE | 2021-05-07 01:22 | PC.NURSE ---
pt went outside for fresh air at this time.
[2021-05-07 02:54] VITALS: BP 93/58; PULSE 98; RESP 18; O2SAT 97
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
[2021-05-07] MEDS: SODIUM CHLORIDE 0.9% IV 1,000 ML 999 ML IV CONT ×2 (04:18→06:24)
[2021-05-07] MEDS: HYDROmorphone HCL INJ (*CRX) 1 MG/ML SYR 0.5 MG IV PUSH ×2 (04:19→06:25)
[2021-05-07] MEDS: ONDANSETRON INJ 4 MG/2 ML VIAL IV PUSH (04:19)
[2021-05-07 04:34] LABS: Add Urine Microscopic? NO; Appearance Urine Clear (Clear); Bilirubin Urine Negative (Negative); Blood Urine Negative (Negative); Color Urine Yellow (Yellow); Glucose Urine UA Negative (Negative); Ketones Urine Negative (Negative); Leukocyte Esterase Ur Negative LEU/UL (Negative); Nitrate Urine Negative (Negative); Protein Urine Negative (Negative); Urobilinogen Urine Negative mg/dL (<2.0)
[2021-05-07 05:22] VITALS: BP 90/62; PULSE 89; RESP 20; O2SAT 97
[2021-05-07 07:19] VITALS: BP 115/92; PULSE 92; RESP 15; O2SAT 100
== END 2021-05-07 07:20 | disposition home or self-care (01) ==
PROVIDERS: Emergency Medicine; Emergency Provider General Practice
DX: K52.9 Noninfective gastroenteritis and colitis, unspecified (principal); I10 Essential (primary) hypertension; F32.9 Major depressive disorder, single episode, unspecified; F41.9 Anxiety disorder, unspecified; F17.210 Nicotine dependence, cigarettes, uncomplicated; Z79.82 Long term (current) use of aspirin
CPT/HCPCS: 36415; 74177; 80053; 81003; 83690; 85025; 96361; 96374; 96375; 96376; 99284; J1170; J2405; J7030; Q9967

== ENCOUNTER 2021-07-05 23:26 | Inpatient (IN) | payer MEDICARE, MEDICAID, SELFPAY ==
--- NOTE | ~2021-07-05 | XR_ITS ---
XR chest ET placement DATE: 07/06/2021 12:35 INDICATION: Respiratory failure. Intubation. TECHNIQUE: Portable AP chest on 07/06/2021 at 1229 hours COMPARISON: None FINDINGS: ET tube in satisfactory position 2.5 cm above purnima. NG tube in stomach. No central lines. Normal heart size. No hilar or mediastinal enlargement. There is infiltrate or atelectasis at the lung bases, right greater than left. Intraperitoneal free air is no longer readily identified compared to 09/21/2019. Bilateral rotator cuff atrophy and glenohumeral osteoarthritis. [place] devices of left humeral head. IMPRESSION: Bibasilar infiltrate and/atelectasis ET tube and NG tube in satisfactory position Reviewed, dictated and finalized at [facility] Reviewed, dictated and finalized at [facility].
--- NOTE | ~2021-07-05 | CT_ITS ---
EXAMINATION: CT abdomen pelvis w con DATE: 07/06/2021 02:45 INDICATION: Abdominal pain, nausea, vomiting TECHNIQUE: Computed tomography (CT) of the abdomen and pelvis was performed with 100 cc Omnipaque 350 intravenous contrast. Automated exposure control and iterative reconstruction technique were employe d. Exam dose: 241.33 mGy-cm total exam DLP. COMPARISON: 05/07/2021 CT abdomen pelvis FINDINGS: The lung bases are clear of consolidation. Normal heart size. No pericardial or pleural eff usion. There is mild ascites including perihepatic, minimal perisplenic fluid, fluid in Morison's pouch and along both paracolic gutters and pelvis. No hepatic space-occupying mass lesion is detected. Normal splenic size. No bile duct or pancreatic d uct dilatation. No pancreatic mass lesion or calcification. Normal morphology of the adrenal glands. The kidneys are unremarkable. Normal caliber of the abdominal aorta. The urinary bladder is unremarkable. Moderate prostate enlargement. There is diverticulosis of the sigmoid colon. There is dilated small bowel with small bowel air-fluid levels. There is fecal-like contents of the m id to distal small bowel. There is small bowel wall thickening and mucosal enhancement. There is moderate pneumoperitoneum, consistent with hollow viscus perforation. No abdominal aortic aneurysm. There is no significant stenosis at the origins of the celiac or superi or mesenteric arteries to suggest ischemic bowel. Degenerative changes of the thoracic and lumbar spine including severe degenerative disc disease at L 2-3 and L4-5. No suspicious osteolytic or osteoblastic lesions are noted. IMPRESSION: Intraperitoneal free air consistent with hollow viscus perforation Dilated mid to distal small bowel with small bowel wall thickening, contrast-enhancement and fecal-li ke contents, suggesting infectious or inflammatory enteritis Mild ascites Diverticulosis of sigmoid colon Reviewed, dictated and finalized at [facility]. Reviewed, dictated and finalized at [facility]. IMPRESSION: Intraperitoneal free air consistent with hollow viscus perforation Dilated mid to distal small bowel with small bowel wall thickening, contrast-en hancement and fecal-like contents, suggesting infectious or inflammatory enteri tis Mild ascites Diverticulosis of sigmoid colon
--- NOTE | ~2021-07-05 | XR_ITS ---
XR abdomen NG/feed tube insert DATE: 07/06/2021 05:16 INDICATION: NG tube placement TECHNIQUE: Portable AP view on 07/06/2021 at 0511 hours COMPARISON: None FINDINGS: An NG tube is present in the proximal stomach, the proximal side-port situated just distal to the diaphragmatic hiatus. Intraperitoneal free air. IMPRESSION: NG tube in proximal stomach Reviewed, dictated and finalized at [facility]. Reviewed, dictated and finalized at [facility]. IMPRESSION: NG tube in proximal stomach
[2021-07-05 23:24] VITALS: BP 113/75; PULSE 78; RESP 20; TEMP 36.8; O2SAT 96
[2021-07-05 23:41] VITALS: PULSE 114; RESP 31
[2021-07-05 23:46] VITALS: PULSE 117; RESP 35
[2021-07-06] VITALS (74 sets, daily range): BP systolic 47–113; BP diastolic 36–81; PULSE 70–116; RESP 14–44; TEMP 33.1–33.8; O2SAT 90–100; BMI 22.4
[2021-07-06 01:03] LABS: Hemoglobin 13.8 g/dL (14.0-18.0); Mean Corpuscular HGB Conc 34.5 g/dl (32-36); Mean Corpuscular Hemoglobin 28.9 pg (26-34); Mean Corpuscular Volume 83.9 fl (80-100); Mean Platelet Volume 8.4 fl (7.4-10.4); Platelet Count Result 306 k/mm3 (150-375); Red Blood Count 4.77 M/mm3 (4.6-6.20); Red Cell Distribution Width 13.5 % (11.5-14.5); White Blood Count 12.4 K/mm3 (4.5-10.0)
[2021-07-06 01:35] LABS: Band Neutrophils Percent 14 % (0-6); Lymphocytes Absolute Manual 0.49 K/mm3 (1.1-4.5); Monocytes Absolute Manual 0.49 K/mm3 (0.1-0.90); Monocytes Percent Manual 4 % (3-9); Neutrophils Percent Manual 78 % (46-73); Platelet Estimate Adequate (Adequate); Total Cells Counted 100
[2021-07-06] MEDS: MORPHINE SULFATE (*CRX) 4 MG/ML INJ IV PUSH ×2 (01:38→04:40)
[2021-07-06] MEDS: ONDANSETRON INJ 4 MG/2 ML VIAL IV PUSH (01:39)
[2021-07-06] MEDS: SODIUM CHLORIDE 0.9% IV 1,000 ML 999 ML IV CONT ×3 (01:39→16:47)
[2021-07-06 01:50] LABS: Lactic Acid Reflex 2.8 mmol/L (0.7-2.1)
--- NOTE | 2021-07-06 02:01 | PC.NURSE ---
Pt refuses to keep heart monitor on and refuses blood pressures at this time. ERP aware.
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
[2021-07-06 02:20] LABS: Alanine Aminotransferase 18 U/L (4-50); Albumin Level 2.2 g/dL (3.5-5.1); Alkaline Phosphatase 65 U/L (38-126); Anion Gap 7 mmol/L (8-16); Aspartate Amino Transferase 24 U/L (17-59); Bilirubin,Total 0.6 mg/dL (0.2-1.3); Blood Urea Nitrogen 40 mg/dL (9-20); Calcium 7.4 mg/dL (8.4-10.2); Carbon Dioxide 24 mmol/L (22-30); Chloride 82 mmol/L (98-107); Estimated CRCL calculation 35 ml/min; Estimated Glomerular Filt Rate 39; Glucose 108 mg/dL (65-110); Potassium 4.6 mmol/L (3.4-5.0); Sodium 113 mmol/L (137-145)
[2021-07-06 02:37] LABS: Lipase < 10 U/L (23-300)
[2021-07-06 04:38] LABS: Reflex Lactic Acid Yes or No Add Lactic
[2021-07-06] MEDS: HYDROmorphone HCL INJ (*CRX) 1 MG/ML SYR IV PUSH (05:31)
[2021-07-06] MEDS: NOREPINEPHRINE 8 MG/D5W 250 ML 8 MG/250 ML BAG 9.38 MG IV CONT (06:43)
[2021-07-06] MEDS: SODIUM CHLORIDE 0.9% IV 1,000 ML 999 ML ×3 (07:00→07:02)
[2021-07-06 07:22] LABS: EDCOVIDSCREEN Negative (Negative)
[2021-07-06 07:48] LABS: Add Urine Microscopic? YES; Appearance Urine Clear (Clear); Bacteria Urine Trace /hpf; Bilirubin Urine Negative (Negative); Blood Urine Negative (Negative); Color Urine Amber (Yellow); Glucose Urine UA Negative (Negative); Hyaline Casts Urine 50+ /lpf; Ketones Urine Negative (Negative); Leukocyte Esterase Ur Negative LEU/UL (Negative); Mucus Urine Rare /lpf; Nitrate Urine Negative (Negative); Protein Urine 1+ mg/dL (Negative); Squamous Epithelial Cell Urine Occasional /hpf (Few); Urobilinogen Urine Negative mg/dL (<2.0)
[2021-07-06 07:58] LABS: Specific Grav Ur 1.033 (1.001-1.035)
[2021-07-06 08:14] LABS: Hematocrit 34.6 % (42.0-52.0); Hemoglobin 11.9 g/dL (14.0-18.0); Mean Corpuscular HGB Conc 34.4 g/dl (32-36); Mean Corpuscular Hemoglobin 28.8 pg (26-34); Mean Corpuscular Volume 83.8 fl (80-100); Mean Platelet Volume 7.7 fl (7.4-10.4); Platelet Count Result 207 k/mm3 (150-375); Red Blood Count 4.13 M/mm3 (4.6-6.20); Red Cell Distribution Width 13.3 % (11.5-14.5); White Blood Count 6.7 K/mm3 (4.5-10.0)
[2021-07-06] MEDS: HYDROmorphone HCL INJ (*CRX) 1 MG/ML SYR 0.5 MG IV PUSH (08:21)
[2021-07-06] MEDS: LACTATED RINGERS 1,000 ML 999 ML IV CONT (08:21)
[2021-07-06 08:24] LABS: Lactic Acid Reflex 1.9 mmol/L (0.7-2.1)
[2021-07-06] MEDS: ALBUMIN HUMAN 25% 25 GM/100 ML 200 ML IVPB (08:25)
[2021-07-06 08:26] LABS: Anion Gap 3 mmol/L (8-16); Blood Urea Nitrogen 32 mg/dL (9-20); Calcium 4.9 mg/dL (8.4-10.2); Carbon Dioxide 18 mmol/L (22-30); Chloride 101 mmol/L (98-107); Glucose 50 mg/dL (65-110); Potassium 3.5 mmol/L (3.4-5.0); Sodium 122 mmol/L (137-145)
[2021-07-06] MEDS: DEXTROSE 50% 25 GM/50 ML SYRINGE IV PUSH ×2 (08:29→12:54)
--- NOTE | 2021-07-06 08:36 | ECG_ITS ---
Measurements Intervals [place] Rate: 89 P: 62 AK: 169 QRS: 51 QRSD: 100 T: 72 QT: 384 QTc: 469 Interpretive Statements SINUS RHYTHM BORDERLINE ST-T WAVE ABNORMALITY- DIFFUSE LEADS BASELINE ARTIFACT- II, V1-V6 BORDERLINE ECG Electronically Signed On 07-06-2021 9:17:18 CDT by Jose Luis Broderick D.O.
[2021-07-06 08:37] LABS: Band Neutrophils Percent 33 % (0-6); Lymphocytes Absolute Manual 0.87 K/mm3 (1.1-4.5); Metamyelocytes Percent 4 %; Monocytes Percent Manual 12 % (3-9); Neutrophils Absolute Manual 4.75 K/mm3 (1.3-6.7); Neutrophils Percent Manual 38 % (46-73); Platelet Estimate Adequate (Adequate); Total Cells Counted 100
[2021-07-06 08:38] LABS: Crenated RBC 1+ (NORMAL); Estimated CRCL calculation 47 ml/min; Estimated Glomerular Filt Rate 57; Poikilocytosis 1+ (NORMAL)
--- NOTE | 2021-07-06 08:41 | WPDANESEPPF ---
Anes - Initial Pre Proc Eval Procedure: Operation Date: 07/06/21 10:00 Proposed Procedures p Exploratory Laparotomy, Possible Bowel Resection - Julius Vieira MD Date/Time: 07/06/21 08:41 Surgeon: Julius Vieira MD Pre Op Diagnosis: abd pain Patient Data Age: 60 Gender: M Height: 1.73 m Weight: 61 kg Last Vital Signs Temp 36.8 C 07/05/21 23:24 Pulse 91 07/06/21 08:04 Resp 24 H 07/06/21 08:04 BP 72/53 L 07/06/21 08:04 Pulse Ox 100 07/06/21 08:04 Allergies Allergy/AdvReac Type Severity Reaction Status Date / Time codeine Allergy Mild Hives Verified 05/06/21 22:11 propoxyphene Allergy Mild Hives Verified 05/06/21 22:11 tramadol Allergy Mild Hives Verified 05/06/21 22:11 Home Medications Medication Instructions Recorded Confirmed Type aspirin [Adult Low Dose Aspirin] 81 mg PO DAILY 09/21/19 04/21/21 History cyclobenzaprine 10 mg PO TID PRN 09/21/19 04/21/21 History lisinopril 5 mg PO DAILY 09/21/19 04/21/21 History tamsulosin 0.4 mg PO DAILY 09/21/19 04/21/21 History polyethylene glycol 3350 [Miralax] 17 g PO QAM #30 ea 09/26/19 04/21/21 Rx oxycodone-acetaminophen 10 mg-325 1 tablet PO Q6H PRN #20 tablet 10/19/19 04/21/21 Rx mg tablet hydrochlorothiazide 25 mg PO DAILY 04/20/21 04/21/21 History hydroxyzine HCl 50 mg PO Q4-5H PRN 04/20/21 04/21/21 History pantoprazole 40 mg PO DAILY 04/20/21 04/21/21 History quetiapine 100 mg PO BID 04/20/21 04/21/21 History magnesium oxide 400 mg PO DAILY 14 Days #14 tablet 04/24/21 Rx pantoprazole 40 mg PO BID 28 Days #56 tablet 04/24/21 Rx potassium chloride 20 meq PO DAILY 7 Days #7 tablet 04/24/21 Rx sucralfate 1,000 mg PO ACHS 14 Days #560 ml 04/24/21 Rx dicyclomine 10 mg PO QID PRN #14 cap 05/07/21 Rx metronidazole [Flagyl] 500 mg PO Q8H 7 Days #21 tablet 05/07/21 Rx Laboratory Tests 07/06/21 07/06/21 07/06/21 00:57 01:34 01:34 WBC 12.4 K/mm3 H K/mm3 (4.5-10.0) RBC 4.77 M/mm3 M/mm3 (4.6-6.20) Hgb 13.8 g/dL L g/dL (14.0-18.0) Hct 40.0 % L % (42.0-52.0) MCV 83.9 fl fl (80-100) MCH 28.9 pg pg (26-34) MCHC 34.5 g/dl g/dl (32-36) RDW 13.5 % % (11.5-14.5) Plt Count 306 k/mm3 k/mm3 (150-375) MPV 8.4 fl fl (7.4-10.4) Immature Gran % (Auto) Not Reportable Neut % (Auto) Not Reportable Lymph % (Auto) Not Reportable [place] % (Auto) Not Reportable Eos % (Auto) Not Reportable Baso % (Auto) Not Reportable Lymph # (Auto) Not Reportable [place] # (Auto) Not Reportable Eos # (Auto) Not Reportable Baso # (Auto) Not Reportable Abs Immat Gran (auto) Not Reportable Absolute Neuts (auto) Not Reportable Absolute Nucleated RBC Not Reportable Total Counted 100 Neutrophils % (Manual) 78 % H % (46-73) Band Neutrophils % 14 % H % (0-6) Lymphocytes % (Manual) 4.0 % L % (18-44) Monocytes % (Manual) 4 % % (3-9) Metamyelocytes % Nucleated RBC % Not Reportable Abs Neuts (Manual) 11.40 K/mm3 H K/mm3 (1.3-6.7) Abs Lymphs (Manual) 0.49 K/mm3 L K/mm3 (1.1-4.5) Abs Monocytes (Manual) 0.49 K/mm3 K/mm3 (0.1-0.90) Platelet Estimate Adequate (Adequate) Poikilocytosis Crenated Cell Sodium 113 mmol/L L* mmol/L (137-145) Potassium 4.6 mmol/L mmol/L (3.4-5.0) Chloride 82 mmol/L L mmol/L (98-107) Carbon Dioxide 24 mmol/L mmol/L (22-30) Anion Gap 7 mmol/L L mmol/L (8-16) BUN 40 mg/dL H D mg/dL (9-20) Creatinine 1.80 mg/dL H mg/dL (0.7-1.3) Estim Creat Clear Calc 35 ml/min ml/min Estimated GFR 39 L (59 - ) Glucose 108 mg/dL mg/dL (65-110) Lacti
[2021-07-06 08:48] LABS: Acetaminophen < 10 ug/mL (10-30); Salicylate < 1.0 mg/dL (2-20)
[2021-07-06 09:08] LABS: Amphetamine Screen Urine Negative (Negative); Barbiturate Screen Urine Negative (Negative); Benzodiazepines Screen Urine Negative (Negative); Cannabinoid Screen Urine Positive (Negative); Cocaine Screen Urine Negative (Negative); Methadone Screen Urine Negative (Negative); Opiate Screen Urine Positive (Negative); Phencyclidine Screen Urine Negative (Negative)
--- NOTE | 2021-07-06 09:10 | WPDHPUPDATE1 ---
History and Physical Update Update Date/Time: 07/06/21 09:10 History and Physical has been reviewed, including an updated exam of the patient. There are NO changes in the patient's condition. Risks, benefits, and alternatives have been discussed and questions answered. Patient agrees to proceed with procedure.
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
--- NOTE | 2021-07-06 10:32 | P.PCNANE_ITS ---
Arterial Cath Proc Note Consent: I have discussed with the patient/family/POA, the non-emergent placement of an arterial catheter, including its clinical necessity/indication and associated potential risks and complications. The patient/family/POA and/or understand(s) and acknowledge(s) the need to proceed with the arterial catheter insertion as an important element of the patient's clinical management. Given emergent patient conditions, temporal constraints may have precluded informed consent. Time-Out: A pre-procedural Time-Out was completed immediately before starting the procedure and confirmed: Patient Identification, Site, Procedure, Patient Position and the Availability of Requisite Equipment. Procedure Note Patient position: supine Insertion site: left radial Method of insertion: ultrasound-guided District Operations Manager prep: sterile gloves, mask and hat Site prep: chlorahexadine Skin anesthesia: general anesthesia Gauge: 20 gauge Length (cm): 4.4 cm Closure/Dressing: antimicrobial disc and tegaderm Complications: None immediately noted/suspected.
--- NOTE | 2021-07-06 12:08 | PC.NURSE ---
This patient, Olvin Billy, was admitted to Intensive Care Unit-9. Patient/family oriented to hospital policies and general routines including ID bracelet, bed and alarms, visiting hours, pain management, procedures, bathroom and other care routines, personal items, smoking policy, room service/diet, and visiting hours. Information on how to activate the Rapid Response Team has been discussed. Patient/Family are encouraged to report perceived risks to care and to ask questions if they do not understand what they are told or what they should do.
[2021-07-06] MEDS: SODIUM BICARBONATE 8.4% 50 MEQ/50 ML SYRINGE 100 MEQ IV PUSH ×3 (12:15→23:05)
[2021-07-06] MEDS: EPINEPHrine INJ 1 MG/10 ML SYRINGE 0.25 MG IV PUSH (12:25)
--- NOTE | 2021-07-06 12:29 | WPDCNINT ---
Assessment and Plan Assessment and plan (1) Septic shock: Code(s): A41.9 - Sepsis, unspecified organism; R65.21 - Severe sepsis with septic shock Status: Acute Assessment and Plan: Patient presented with shock from his peritonitis. He received 6 L of fluid in the ED and 2 L in the or He was on continuous infusion of Levophed and received several pushes of vasopressin and epinephrine in the operating room to keep his blood pressure at acceptable level On arrival to ICU patient's blood pressure was 60 systolic by art line despite being on Levophed at 35 mics I gave IV push off 2 amps of bicarb and 0.25 mg of epinephrine to get his blood pressure Will continue Levophed vasopressin and epinephrine infusion Half-normal saline bolus of 1 L Albumin 5% bolus 25% albumin every 6 hours Hydrocortisone every 8 hours Check and monitor lactic acid level (2) Hyponatremia: Code(s): E87.1 - Hypo-osmolality and hyponatremia Status: Acute Assessment and Plan: Patient does have chronic hyponatremia which is mild but presented with sodium of 113 which could be acute secondary to hypovolemia from septic shock His presentation was complicated by his presentation requiring aggressive fluid resuscitation Patient received 6 L of fluids in the ED and is repeat sodium was 122 Again in the OR he has seen 2 L of fluid I will check his sodium level now. The fluid bolus given on presentation here was half-normal saline Will monitor sodium level every 4 hours and try to treat with hypotonic fluids and colloids Severe septic shock is going to make management of his hypernatremia very difficult (3) Hypoglycemia: Code(s): E16.2 - Hypoglycemia, unspecified Status: Acute Assessment and Plan: Blood sugar was low. Patient was given 1 amp of D50s I will start dextrose IV fluid and monitor q.1 hour for now (4) Perforated abdominal viscus: Code(s): R19.8 - Other specified symptoms and signs involving the digestive system and abdomen Status: Acute Assessment and Plan: Status post exploratory laparotomy Referred to surgical operative note for details NG tube to low intermittent suction NPO (5) Acute kidney injury: Code(s): N17.9 - Acute kidney failure, unspecified Status: Acute Assessment and Plan: Likely secondary to sepsis and shock Monitor urine output electrolytes and creatinine Check CK CT abdomen pelvis did not show any hydronephrosis (6) Peritonitis (acute) generalized: Code(s): K65.0 - Generalized (acute) peritonitis Status: Acute Assessment and Plan: See above (7) Acute respiratory failure: Code(s): J96.00 - Acute respiratory failure, unspecified whether with hypoxia or hypercapnia Status: Acute Assessment and Plan: Acute Respiratory failure secondary to septic shock, peritonitis, general anesthesia Continue full mechanical ventilation support to prevent hypoxemia/hypercarbia and end organ damage. PCXR reviewed Ventilator adjusted ABGs ordered and pending Low tidal volume ventilation strategy to prevent volutrauma Will attempt SBT when hemodynamically stable (8) Acidosis: Code(s): E87.2 - Acidosis Status: Acute Assessment and Plan: 2 amps of IV bicarb given on presentation to ICU due to severe shock Will check ABG and BMP (9) Electrolyte abnormality: Code(s): E87.8 - Other disorders of electrolyte and fluid balance, not elsewhere classified Status: Acute Assessment and Plan: IV calcium chloride ordered for hypercalcemia and severe septic shock Additional Plan DVT prophylaxis -SCDs for now Stress ulcer prophylaxis -PPI q.12 hours Nutrition -NPO Code Status - Full Code I spoke to patient's daughter Awilda khan by phone and updated her with patient's presentation, surgery, severe septic shock, acute respiratory failure and other medical issues at this time. Explained her the critical na
[2021-07-06 12:42] LABS: Hematocrit 28.1 % (42.0-52.0); Hemoglobin 9.4 g/dL (14.0-18.0); Mean Corpuscular HGB Conc 33.5 g/dl (32-36); Mean Corpuscular Volume 86.7 fl (80-100); Mean Platelet Volume 8.2 fl (7.4-10.4); Platelet Count Result 216 k/mm3 (150-375); Red Blood Count 3.24 M/mm3 (4.6-6.20); Red Cell Distribution Width 13.8 % (11.5-14.5)
[2021-07-06] MEDS: NOREPINEPHRINE 8 MG/D5W 250 ML 8 MG/250 ML BAG 112.5 MG IV CONT ×4 (12:44→20:04)
[2021-07-06] MEDS: EPINEPHrine INJ 1 MG in DEXTROSE 5% IN WATER 250 ML 301.2 MG IV CONT (12:44)
[2021-07-06] MEDS: VASOPRESSIN INJ 100 UNITS in DEXTROSE 5% 95 ML IV CONT (12:45)
[2021-07-06] MEDS: ALBUMIN HUMAN 5% 25 GM/500 ML BTL IV CONT ×2 (12:50→16:45)
[2021-07-06 12:54] LABS: INR 4.4; Prothrombin Time 40.8 Seconds (11.1-14.7)
[2021-07-06 12:55] LABS: Partial Thromboplastin Time 82.4 SECONDS (22.3-36.8)
[2021-07-06] MEDS: SODIUM CHLORIDE 0.45% 1,000 ML 1000 ML IV CONT ×2 (12:55→14:57)
--- NOTE | 2021-07-06 12:57 | W.PM.PROC2 ---
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 He had a surgical abdomen. CT scan showed pneumoperitoneum and evidence of pseudo feces in multiple areas of the small intestine. Patient became hypotensive in the emergency room and required central line I had multiple fluids and IV vasopressors. He is taken to surgery emergently now for bowel perforation and septic shock. Findings Small-bowel pseudo feces, essentially stool, spread throughout the abdominal cavity. Distal ileum was twisted and partially obstructed in the lower abdomen with ischemic change. There were a couple of areas of the distal ileum which were perforated and leaking semi-liquid stool. No obstructive lesion was found and the obstruction was likely adhesions and distal ileal twisting. The transverse colon was dilated but no obstructive lesions were noted. The remainder of the proximal small bowel as well as the right colon descending colon and sigmoid colon had stool within it but no lesions such as a neoplasm. Patient was hypotensive throughout the surgery. His map ran between 60-70. His systolic blood pressure was never in the 90s but was in the upper 70s and low 80s throughout the surgery. His bowel remained dusky and it was not safe to perform intestinal anastomosis. Thus the ileostomy and mucous fistula were created. Patient was taken to the ICU in severe septic shock and with an ominous prognosis. Description of Procedure Patient was taken to surgery. He was induced into general anesthesia. Radial arterial line was placed by Department of Anesthesia. The abdomen was prepped and draped. Midline incision was made and dissection was carried down into the peritoneal cavity. There was a lot of dark semi solid but green enteric content in the abdomen. Nearly a L of fluid was suctioned from the abdominal cavity. There was significant green fecal soiling on nearly all serosal surfaces particularly the bowel. We mobilized the inflammatory adhesions and found the area of very dusky distal ileum. It was twisted in the right lower quadrant. We elevated this and took down a few inflammatory adhesions, bringing it up and out of the abdominal cavity as quickly as possible. From there we continued to suction and evacuate fecal contamination as quickly as possible. Even though nearly the entire small bowel was dusky, we did go ahead and resect the distal ileum where the most ischemic bowel and the 2 areas of perforation were found. The cautery was used to make a window in the mesentery near the bowel at the proximal end and the distal end of the area to be resected. The TLC 75 stapler was fired both at the proximal and at the distal end of the area to be resected. We had to over-sew 1 of the ends that had been divided with the stapler as it was still leaking some stool. This was done with 4-0 silk Lembert suture. We then divided the mesentery of the bowel to be removed with the LigaSure. The specimen was sent off to pathology. We then irrigated the abdominal cavity with several L of warm saline. I mobilized the right colon and looked very clearly at the terminal ileum, cecum and ascending colon. No obstructive lesions were noted. There was a diminutive appendix that was normal. There was a mesenteric mass that may have been a lipoma. Some of the remaining distal ileal bowel appeared abnormal. I went ahead and used the LigaSure to divide the mesentery to another 10 in of bowel. I divided the distal ileum even closer to the cecum with the TLC 75 stapler. This additional piece of ileum was sent off as distal ileu
[2021-07-06 12:59] LABS: Alveolar/Arterial O2 Gradient 283.9 mmHg; Base Excess ABG -10.5 mEq/l (+/-2.0); Fractional Inspired Oxygen 100 %; HCO3 ABG 16.2 mEq/l (22.0-26.0); Oxygen Content ABG 14.2 %vol (16.0-22.0); Oxygen Saturation ABG 99.7 % (95.0-100.0); Oxyhemoglobin 97.1 % THb (90.0-100.0); PCO2 ABG 39.6 mmHg (35.0-45.0); PO2 ABG 389.5 mmHg (80.0-100.0); PO2 FiO2 Ratio Arterial Blood 3.89 %; Total Hemoglobin 9.6 g/dL (12.0-18.0)
[2021-07-06 13:02] LABS: Arterial Blood Gas Vent Mode CMV; Arterial Blood Gas Ventilator rate 20 /MIN; Device VENTILATOR; Site Drawn ARTLINE; pH ABG 7.231 (7.350-7.450)
[2021-07-06 13:03] LABS: Arterial Blood Gas PEEP 5 cmH2O; Arterial Blood Gas Tidal Volume 420 ml
[2021-07-06 13:04] LABS: Anion Gap 8 mmol/L (8-16); Blood Urea Nitrogen 31 mg/dL (9-20); Calcium 5.7 mg/dL (8.4-10.2); Carbon Dioxide 18 mmol/L (22-30); Chloride 95 mmol/L (98-107); Estimated CRCL calculation 47 ml/min; Estimated Glomerular Filt Rate 57; Glucose 66 mg/dL (65-110); Magnesium 1.9 mg/dL (1.6-2.3); Potassium 4.7 mmol/L (3.4-5.0); Sodium 121 mmol/L (137-145)
[2021-07-06 13:05] LABS: Lactic Acid Reflex 5.4 mmol/L (0.7-2.1)
[2021-07-06 13:06] LABS: Fibrinogen 111 mg/dl (215-510)
[2021-07-06 13:11] LABS: Glucose Point of Care 38 mg/dl (65-105)
[2021-07-06 13:11] LABS: Glucose Point of Care 127 mg/dl (65-105)
[2021-07-06] MEDS: SUCRALFATE SUSP 100 MG/ML 10 ML UDC 1000 MG PO ×3 (13:11→20:08)
[2021-07-06] MEDS: CALCIUM CHLOR 1,000MG/100ML NS 1,000 MG/100 ML BAG 100 MG IVPB (13:11)
[2021-07-06 13:15] LABS: Band Neutrophils Percent 51 % (0-6); Lymphocytes Absolute Manual 0.81 K/mm3 (1.1-4.5); Metamyelocytes Percent 5 %; Monocytes Absolute Manual 0.27 K/mm3 (0.1-0.90); Monocytes Percent Manual 3 % (3-9); Myelocytes Percent 1 %; Neutrophils Absolute Manual 7.38 K/mm3 (1.3-6.7); Neutrophils Percent Manual 31 % (46-73); Nucleated Red Blood Cells 1 %; Total Cells Counted 100
[2021-07-06 13:18] LABS: Crenated RBC 1+ (NORMAL); Platelet Estimate Adequate (Adequate)
[2021-07-06] MEDS: EPINEPHrine INJ 4 MG in DEXTROSE 5% IN WATER 250 ML 76.2 MG IV CONT (13:28)
[2021-07-06] MEDS: SODIUM BICARBONATE 8.4% 100 MEQ in DEXTROSE 5% 1,000 ML 1,000 ML 150 MEQ IV CONT ×2 (13:34→20:40)
[2021-07-06] MEDS: FLUCONAZOLE 100 MG/NACL 50 ML 100 MG/50 ML BTL 50 MG IVPB (13:36)
[2021-07-06 14:19] LABS: Glucose Point of Care 132 mg/dl (65-105)
[2021-07-06] MEDS: SODIUM BICARBONATE 8.4% 50 MEQ/50 ML SYRINGE IV PUSH (14:57)
[2021-07-06] MEDS: CENTRAL LINE FLUSH 10 ML IV PUSH ×2 (14:57→20:10)
[2021-07-06] MEDS: FENTANYL 2,500MCG/NS250ML(*CRX 2,500 MCG/250 ML BAG IV CONT (15:02)
[2021-07-06] MEDS: EPINEPHrine INJ 4 MG in DEXTROSE 5% IN WATER 250 ML 152.4 MG IV CONT ×4 (15:52→21:29)
[2021-07-06] MEDS: PHENYLEPHRINE 1,000 MCG/10 ML SYRINGE 100 MCG IV PUSH (15:52)
[2021-07-06 15:58] LABS: Glucose Point of Care 134 mg/dl (65-105)
[2021-07-06] MEDS: SODIUM BICARBONATE 8.4% 50 MEQ/50 ML SYRINGE 100 MEQ (16:10)
[2021-07-06 16:29] LABS: Anion Gap 11 mmol/L (8-16); Blood Urea Nitrogen 27 mg/dL (9-20); Calcium 5.6 mg/dL (8.4-10.2); Carbon Dioxide 11 mmol/L (22-30); Chloride 90 mmol/L (98-107); Glucose 234 mg/dL (65-110); Sodium 112 mmol/L (137-145)
[2021-07-06 16:30] LABS: Lactic Acid Reflex 7.8 mmol/L (0.7-2.1)
[2021-07-06 16:31] LABS: Estimated CRCL calculation 55 ml/min; Estimated Glomerular Filt Rate > 60
[2021-07-06 18:12] LABS: Glucose Point of Care 142 mg/dl (65-105)
[2021-07-06 19:08] LABS: Reflex Lactic Acid Yes or No Add Lactic
--- NOTE | 2021-07-06 19:30 | PC.NURSE ---
Patient placed on Concha hugger for stacy core temp of 92.0.
[2021-07-06] MEDS: PANTOPRAZOLE SODIUM IV 40 MG VIAL IV PUSH (20:08)
[2021-07-06] MEDS: MINERAL OIL/WHITE PETROLATUM OINTMENT 1 APPLIC EACH EYE (20:09)
[2021-07-06 21:15] LABS: Lactic Acid 12.5 mmol/L (0.7-2.1)
[2021-07-06 21:32] LABS: Anion Gap 18 mmol/L (8-16); Blood Urea Nitrogen 25 mg/dL (9-20); Calcium 5.6 mg/dL (8.4-10.2); Carbon Dioxide 11 mmol/L (22-30); Chloride 87 mmol/L (98-107); Estimated CRCL calculation 56 ml/min; Estimated Glomerular Filt Rate > 60; Glucose 307 mg/dL (65-110); Potassium 4.9 mmol/L (3.4-5.0); Sodium 116 mmol/L (137-145)
--- NOTE | 2021-07-06 21:40 | PC.NURSE ---
Spoke with Dr. Chandler regarding lab results. Give 2 amps bicarb. Change bicarb drip to sterile water from Dextrose. May increase epi drip to 60mcg and Levophed to 100mcg. Call Dr. Vieira and update as well.
--- NOTE | 2021-07-06 22:11 | PC.NURSE ---
Addendum entered by Ciro King RN 07/07/21 06:23: Dr. Vieira was also asked if CT were needed. No further orders at this time, continue current medications. Original Note: Spoke and updated Dr. Vieira, no further orders at this time.
[2021-07-06] MEDS: SODIUM BICARBONATE 8.4% 150 MEQ in WATER, STERILE FOR INJECTION 950 ML IV CONT (22:29)
[2021-07-06] MEDS: EPINEPHrine INJ 4 MG in DEXTROSE 5% IN WATER 250 ML 228.6 MG IV CONT (22:52)
[2021-07-06] MEDS: NOREPINEPHRINE BITARTRATE 16 MG in DEXTROSE 5% IN WATER 250 ML 59.85 ML IV CONT (22:54)
[2021-07-06] MEDS: ALBUMIN HUMAN 25% 25 GM/100 ML 100 ML IVPB (23:13)
--- NOTE | 2021-07-06 23:20 | PC.NURSE ---
Family updated that patient is not doing well and that prognosis is poor. Family on facetime per wishes.
[2021-07-07] VITALS (12 sets, daily range): BP systolic 45–67; BP diastolic 36–56; PULSE 0–91; RESP 0–26; TEMP 34.2–35.9
--- NOTE | 2021-07-07 | PC.NURSE ---
Family updated while still on Facetime that blood pressure has decreased. Family aware of patient decline. Patient remains full code per PoA
[2021-07-07] MEDS: EPINEPHrine INJ 4 MG in DEXTROSE 5% IN WATER 250 ML 228.6 MG IV CONT ×3 (00:01→02:23)
[2021-07-07 00:31] LABS: Glucose Point of Care 124 mg/dl (65-105)
[2021-07-07] MEDS: NOREPINEPHRINE BITARTRATE 16 MG in DEXTROSE 5% IN WATER 250 ML 59.85 ML IV CONT (02:17)
--- NOTE | 2021-07-07 02:28 | PC.NURSE ---
Code Blue called, patient Asystole. See Code Sheet. Dr. Eduardo in attendance.
--- NOTE | 2021-07-07 03:35 | PC.NURSE ---
Daughter Awilda (sophy) was notified during code by Sylvia Mosquera RN. Awilda Norris told staff to stop CPR, verified by myself Ciro GRANT.
--- NOTE | 2021-07-07 03:39 | P.DN_ITS ---
Discharge Summary Date and Time Date of : 07/07/21 Time of : 03:35 Provider Pronounced By: Dr. Eduardo Probable Cause of Probable Cause of : Septic shock due to perforated bowel Summary Hospital Course: Code blue summary/ summary 60-year-old male with past medical history of prior bowel perforation, chronic narcotic and illicit substance abuse who presented to the ER around 1:00 a.m. on the with abdominal pain nausea and vomiting. He was hypotensive on presentation and had a stat CT scan performed which demonstrated small volume pneumoperitoneum concerning for perforation. The CT also demonstrated considerable number of pills in the dilated small bowel which was unusual. Given that the patient had had perforations previously the surgeon felt the patient was to better served at a tertiary care center. However there were no operating rooms available at [facility] or [facility]. While trying to arrange transfer the patient became progressively hypotensive and a central line was placed. The patient was placed on vasopressor support in the patient was taken emergently for exploratory laparotomy. Intraoperatively patient had fecal peritonitis with stool spread throughout the abdominal cavity. The distal ileum was twisted and partially obstructed in the lower abdomen with ischemic changes. There were couple of areas of distal ileum which were perforated in leaking semiliquid stool. It was felt that the patient's bowel obstruction was likely due to adhesions in distal ileal twisting. Nearly 1 L of fluid was suctioned from the abdominal cavity. There was fecal soiling of nearly all the serosal surfaces. Nearly the entire small bowel was dusky. The patient's abdomen was washed out with dilute peroxide solution followed by warm saline. The patient's blood pressures remained low throughout the entire course with the operative procedure with maps between 60 and 70. As the bowel did not look healthy surgeon subsequently performed an ileostomy and a mucous fistula. The patient was admitted to the ICU and was requiring extremely high-dose vasopressors. He received aggressive intervascular volume repletion, and bicarb supplementation with continuing worsening lactic acidosis. The patient's overall prognosis was ominous. Despite our best efforts and maximal medical therapy the patient went into asystole 0328. The patient had resuscitation attempts for a total of 7 minutes before the daughter notified staff to cease all efforts. Additional Data Confirmation of as documented by pronouncing clinician: Pupillary Reflex, Palpable Pulses (Absent waveform on arterial line), Response to Stimuli, Heart Tones and Breath Sounds Family: contacted Name of Provider Notified: Physician at bedside Was code activated?: Yes Provider Requests Autopsy: No Family Requests Autopsy: No Line Maintainer Section Notified: Yes Date [facility] Notified of : 07/07/21 Time [facility] Notified of : 03:45 Advance directives: No Hospice patient?: No
== END 2021-07-07 03:35 | disposition expired | DRG 853 ==
LOC: ANHED 07-06 00:55 → ANHSURGERY 07-06 08:11 → ANHICU 07-06 12:28
PROVIDERS: Emergency Medicine; Internal Medicine; Admitting Provider Surgery; Emergency Provider Emergency Medicine; PCP Family Medicine; Visit Provider Surgery
PROC: 0D1B0Z4 Bypass Ileum to Cutaneous, Open Approach (ICD-10-PCS; CPT 49000; principal; 2021-07-06 10:00)
DX: A41.9 Sepsis, unspecified organism (principal); R65.21 Severe sepsis with septic shock; J96.00 Acute respiratory failure, unspecified whether with hypoxia or hypercapnia; K63.1 Perforation of intestine (nontraumatic); K65.0 Generalized (acute) peritonitis; K56.50 Intestinal adhesions [bands], unspecified as to partial versus complete obstruction; N17.9 Acute kidney failure, unspecified; E87.1 Hypo-osmolality and hyponatremia; Z20.822 Contact with and (suspected) exposure to COVID-19; E83.52 Hypercalcemia; N40.0 Benign prostatic hyperplasia without lower urinary tract symptoms; E16.2 Hypoglycemia, unspecified; F41.9 Anxiety disorder, unspecified; F31.9 Bipolar disorder, unspecified; F19.10 Other psychoactive substance abuse, uncomplicated; K21.9 Gastro-esophageal reflux disease without esophagitis; F17.210 Nicotine dependence, cigarettes, uncomplicated; Z87.442 Personal history of urinary calculi; Z79.4 Long term (current) use of insulin; Z79.82 Long term (current) use of aspirin
CPT/HCPCS: 36415; 36556; 36600; 74177; 80048; 80053; 80307; 81001; 82805; 82948; 83605; 83690; 83735; 85025; 85384; 85610; 85730; 86850; 86900; 86901; 87086; 87426; 88307; 93005; 94002; 96361; 96365; 96375; 96376; 99291; A9270; C1751; C9113; C9803; J0171; J0330; J0610; J1170; J1450; J2250; J2270; J2370; J2405; J2543; J3010; J7030; J7060; J7070; J7120; P9045; P9047; Q9967